=== PATIENT | male | born 1985 | race Caucasian/White ===

== ENCOUNTER 2018-08-20 14:46 | Emergency (ER) | payer OTHER ==
--- NOTE | 2018-08-20 15:22 | ED ---
General Adult HPI - General Chief complaint: Psychiatric Symptoms Stated complaint: Mental Health Time Seen by Provider: 08/20/18 14:55 Source: police, RN notes reviewed Mode of arrival: ambulatory Limitations: no limitations - History of Present Illness Initial comments: This is a 32-year-old male who presents emergency Department with police after having made statements about wanting to kill himself and threatening his parents. Father had petition times and called the police. According to the police the friend had received a phone call from the patient and the patient had indicated that he wanted to kill himself and so the friend called the police. Father confirmed those statements with police. Father also told the police that the patient was threatening them. Patient told me that myself and the police officers in the room were all psychopaths and he also told the police specialist earlier that he wanted to kill [place] specific. Patient also stated he thought the pharmaceutical [employer] wanted to use as a guinea pig further medications. Patient denies any physical complaints. Patient did have an abrasion to his left hand and forehead after he ran away from the police and phone the sidewalk. Patient denies any other symptoms patient denies any pain patient denies any recent fever chills. - Related Data Home Medications Medication Instructions Recorded Confirmed No Known Home Medications 08/20/18 08/20/18 Allergies Allergy/AdvReac Type Severity Reaction Status Date / Time No Known Allergies Allergy Unverified 08/20/18 15:42 Review of Systems ROS Statement: Those systems with pertinent positive or pertinent negative responses have been documented in the HPI. ROS Other: All systems not noted in ROS Statement are negative. Past Medical History Past Medical History: Unable to Obtain History of Any Multi-Drug Resistant Organisms: None Reported Past Surgical History: Unable to Obtain Past Psychological History: Unable to Obtain Smoking Status: Never smoker Past Alcohol Use History: Occasional Past Drug Use History: None Reported General Exam - General Exam Comments Initial Comments: GENERAL: Patient is well-developed and well-nourished. Patient is nontoxic and well- hydrated and is in no acute distress. ENT: Neck is soft and supple. No significant lymphadenopathy is noted. Oropharynx is clear. Moist mucous membranes. Neck has full range of motion without eliciting any pain. EYES: The sclera were anicteric and conjunctiva were pink and moist. Extraocular movements were intact and pupils were equal round and reactive to light. Eyelids were unremarkable. PULMONARY: Unlabored respirations. Good breath sounds bilaterally. No audible rales rhonchi or wheezing was noted. CARDIOVASCULAR: There is a regular rate and rhythm without any murmurs gallops or rubs. ABDOMEN: Soft and nontender with normal bowel sounds. No palpable organomegaly was noted. There is no palpable pulsatile mass. SKIN: Superficial abrasion to the palmar surface of the left hand and the anterior aspect of the forehead. NEUROLOGIC: Patient is alert and oriented x3. Cranial nerves II through XII are grossly intact. Motor and sensory are also intact. Normal speech, volume and content. Symmetrical smile. MUSCULOSKELETAL: Normal extremities with adequate strength and full range of motion. LYMPHATICS: No significant lymphadenopathy is noted PSYCHIATRIC: Patient made suicidal statements and homicidal statements to the police and father and friends. Patient admits to making these statements. Patient also makes statements about the pharmaceutical company try to use it as a guinea pig. Patient also made a statement that we all this Brittni LOC him up. Patient seems very angry and agitated. Limitations: no limitations Course Vital Signs 08/20/18 14:55 Temperature 99.8 F H Pulse Rate 125 H Respiratory 22 Rate Blood Pressure 170/96 O2 Sat by Pulse 97 Oximetry Medical Decision Making - Medical Decision Making I filled out a clinical certification form. Patient will be transferred to a psych facility. Disposition Clinical Impression: Acute psychosis Disposition: TRANSFER TO PSYCH HOSP/UNIT Referrals: None,Stated [Primary Care Provider] - 1-2 days Time of Disposition: 16:56
[2018-08-20 17:34] LABS: Appearance,Urine Clear (Clear); Bilirubin,Urine Negative (Negative); Blood,Urine Negative (Negative); Color,Urine Light Yellow; Glucose,Urine (UA) Negative (Negative); Ketones,Urine Negative (Negative); Leukocyte Esterase,Urine Negative (Negative); Nitrite,Urine Negative (Negative); PH, Urine 6.5 (5.0-8.0); Protein,Urine Trace (Negative); Specific Gravity,Urine 1.006 (1.001-1.035); Urobilinogen,Urine <2.0 mg/dL (<2.0)
[2018-08-20 17:44] LABS: Amphetamine Screen,Urine Not Detected (NotDetected); Barbiturate Screen,Urine Not Detected (NotDetected); Benzodiazepines Screen,Urine Not Detected (NotDetected); Cocaine Screen,Urine Not Detected (NotDetected); Methadone Screen, Urine Not Detected (NotDetected); Opiate Screen,Urine Not Detected (NotDetected); Oxycodone Screen, Urine Not Detected (NotDetected); Phencyclidine Screen,Urine Not Detected (NotDetected); Tricyclic Antidepressant,Urine Not Detected (NotDetected); Urn Cannabinoid Scrn Detected (NotDetected)
[2018-08-20 18:18] LABS: Basophils % (A) 0 %; Eosinophils # (A) 0.1 k/uL (0-0.7); Eosinophils % (A) 1 %; HCT 43.8 % (39.0-53.0); HGB 15.2 gm/dL (13.0-17.5); Lymphocytes % (A) 8 %; MCHC 34.8 g/dL (31.0-37.0); MCV 89.3 fL (80.0-100.0); Mean Platelet Volume 7.2; Monocytes # (A) 0.6 k/uL (0-1.0); Monocytes % (A) 5 %; Neutrophils # (A) 11.2 k/uL (1.3-7.7); Neutrophils % (A) 86 %; Platelet Count 194 k/uL (150-450); RDW 12.9 % (11.5-15.5); WBC 12.9 k/uL (3.8-10.6)
[2018-08-20 18:31] LABS: ALT 16 U/L (21-72); AST 21 U/L (17-59); Albumin 4.8 g/dL (3.5-5.0); Alkaline Phosphatase 43 U/L (38-126); Anion Gap 10 mmol/L; Blood Urea Nitrogen 10 mg/dL (9-20); Calcium 9.7 mg/dL (8.4-10.2); Carbon Dioxide 23 mmol/L (22-30); Chloride 108 mmol/L (98-107); Glucose 122 mg/dL (74-99); Potassium 3.7 mmol/L (3.5-5.1); Sodium 141 mmol/L (137-145); Total Bilirubin 0.6 mg/dL (0.2-1.3); Total Protein 7.5 g/dL (6.3-8.2)
[2018-08-20 22:14] VITALS: BP 131/76; PULSE 76; RESP 16; TEMP 98.2
== END 2018-08-21 01:05 ==
LOC: EC 14:46
DX: F23 Brief psychotic disorder (principal); S60.512A Abrasion of left hand, initial encounter; S00.81XA Abrasion of other part of head, initial encounter; X58.XXXA Exposure to other specified factors, initial encounter
CPT/HCPCS: 36415; 80053; 80306; 81003; 85025; 99285

== ENCOUNTER 2018-10-22 09:39 | Emergency (ER) | payer OTHER ==
[2018-10-22 09:49] VITALS: PULSE 110; RESP 18
--- NOTE | 2018-10-22 10:16 | ED ---
General Adult HPI - General Chief complaint: Psychiatric Symptoms Stated complaint: suicidal Time Seen by Provider: 10/22/18 09:48 Source: patient, RN notes reviewed Mode of arrival: EMS Limitations: no limitations - History of Present Illness Initial comments: Patient 32-year-old male presented to the emergency room today by police needing psychiatric evaluation. Patient does admit that he got into an argument with his father this morning. Patient states that he was upset because it was father yesterday that he did not want talk to him. He states that he try to talk to him this morning which caused him to get into her argument. He states his mother called the police. Patient states he voluntarily came here to be evaluated. He does see a therapist every other week which he has been going to. States she's been taking his medication of Abilify. He denies any suicidal or homicidal thoughts or plans. Denies any other complaints. Patient denies any recent fever, chills, shortness of breath, chest pain, back pain, abdominal pain, nausea or vomiting, numbness or tingling , headaches or visual changes, or any other complaints. - Related Data Home Medications Medication Instructions Recorded Confirmed ARIPiprazole [Abilify] 20 mg PO DAILY 10/22/18 10/22/18 Acetaminophen Tab [Tylenol Tab] 500 mg PO Q6HR PRN 10/22/18 10/22/18 Allergies Allergy/AdvReac Type Severity Reaction Status Date / Time No Known Allergies Allergy Verified 10/22/18 10:03 Review of Systems ROS Statement: Those systems with pertinent positive or pertinent negative responses have been documented in the HPI. ROS Other: All systems not noted in ROS Statement are negative. Past Medical History Past Medical History: Unable to Obtain History of Any Multi-Drug Resistant Organisms: None Reported Past Surgical History: Unable to Obtain Past Psychological History: Depression Smoking Status: Former smoker Past Alcohol Use History: None Reported Past Drug Use History: None Reported General Exam - General Exam Comments Initial Comments: General: The patient is awake and alert, in no distress, and does not appear acutely ill. Eye: There is normal conjunctiva bilaterally. No signs of icterus. Ears, nose, mouth and throat: There are moist mucous membranes and no oral lesions. Neck: The neck is supple, there is no tenderness or JVD. Cardiovascular: There is a regular rate and rhythm. No murmur, rub or gallop is appreciated. Respiratory: Lungs are clear to auscultation, respirations are non-labored, breath sounds are equal. No wheezes, stridor, rales, or rhonchi. Musculoskeletal: Normal ROM, no tenderness. Neurological: A&O x 3. CN II-XII intact, There are no obvious motor or sensory deficits. Coordination appears grossly intact. Speech is normal. Skin: Skin is warm and dry and no rashes or lesions are noted. Psychiatric: Cooperative. Limitations: no limitations Course Vital Signs 10/22/18 10/22/18 09:43 13:21 Temperature 98.7 F 97.3 F L Pulse Rate 110 H 110 H Respiratory 18 18 Rate Blood Pressure 114/76 110/67 O2 Sat by Pulse 98 98 Oximetry Medical Decision Making - Medical Decision Making Patient has been seen here in emergency room by mental health in the recommendation that patient can follow up outpatient. Patient denies any suicidal homicidal thoughts or plans. Patient will be discharged to follow-up with [facility]. Crisis unit is here to take patient. Disposition Clinical Impression: Aggression Disposition: HOME SELF-CARE Condition: Good Additional Instructions: Please follow-up with Valsalva as discussed here in emergency room. Return to emergency room if any symptoms increase or worsen or for any other concerns. Is patient prescribed a controlled substance at d/c from ED?: No Referrals: None,Stated [Primary Care Provider] - 1-2 days Time of Disposition: 13:23
[2018-10-22 13:22] VITALS: BP 110/67; TEMP 97.3
== END 2018-10-22 13:37 | disposition home or self-care (01) ==
LOC: EC 09:39
DX: R45.6 Violent behavior (principal); F32.9 Major depressive disorder, single episode, unspecified; Z79.899 Other long term (current) drug therapy; Z87.891 Personal history of nicotine dependence
CPT/HCPCS: 99284

== ENCOUNTER 2021-04-30 11:54 | Inpatient (IN) | payer MEDICAID, OTHER ==
[2021-04-30 12:41] LABS: Glucose,Whole Blood 117 mg/dL (75-99)
--- NOTE | 2021-04-30 13:13 | ED ---
General Adult HPI - General Chief complaint: Psychiatric Symptoms Stated complaint: Pickup order, EPS Time Seen by Provider: 04/30/21 12:00 Source: patient, police, RN notes reviewed, old records reviewed Mode of arrival: ambulatory Limitations: no limitations - History of Present Illness Initial comments: This is a 35-year-old male who presents emergency Department under a petition court order. Patient seems to be obsessed with food cleanliness and thinks his father is not keeping the kitchen cleaning off is always getting food poisoning. Patient states he is not suicidal and he disagrees ever said that. Patient states him and his father to argue quite a bit lately. Patient states he has not recently are within a was neighbors though the petition states he has. Patient denies any physical complaints today. Patient denies any suicidal ideations or homicidal ideations. Patient denies any drug use. Patient states he is supposed be on Abilify but does not take it. Patient does not believe he needs to be here. - Related Data Home Medications Medication Instructions Recorded Confirmed No Known Home Medications 04/30/21 04/30/21 Allergies Allergy/AdvReac Type Severity Reaction Status Date / Time dust Allergy Dyspnea Uncoded 04/30/21 13:44 Review of Systems ROS Statement: Those systems with pertinent positive or pertinent negative responses have been documented in the HPI. ROS Other: All systems not noted in ROS Statement are negative. Past Medical History Past Medical History: No Reported History History of Any Multi-Drug Resistant Organisms: None Reported Past Surgical History: No Surgical Hx Reported Past Psychological History: Depression Smoking Status: Never smoker Past Alcohol Use History: None Reported Past Drug Use History: None Reported General Exam - General Exam Comments Initial Comments: GENERAL: Patient is well-developed and well-nourished. Patient is nontoxic and well- hydrated and is in no acute distress. ENT: Neck is soft and supple. No significant lymphadenopathy is noted. Oropharynx is clear. Moist mucous membranes. Neck has full range of motion without eliciting any pain. EYES: The sclera were anicteric and conjunctiva were pink and moist. Extraocular movements were intact and pupils were equal round and reactive to light. Eyelids were unremarkable. PULMONARY: Unlabored respirations. Good breath sounds bilaterally. No audible rales rhonchi or wheezing was noted. CARDIOVASCULAR: There is a regular rate and rhythm without any murmurs gallops or rubs. ABDOMEN: Soft and nontender with normal bowel sounds. SKIN: Skin is clear with no lesions or rashes and otherwise unremarkable. NEUROLOGIC: Patient is alert and oriented x3. Cranial nerves II through XII are grossly intact. Motor and sensory are also intact. Normal speech, volume and content. Symmetrical smile. MUSCULOSKELETAL: Normal extremities with adequate strength and full range of motion. LYMPHATICS: No significant lymphadenopathy is noted PSYCHIATRIC: Patient denies any suicidal homicidal ideations. Patient does seem to be somewhat paranoid about food preparation and thinks that he eats. Patient thinks his low wait secondary to probably food poisoning from his father's unsanitary cooking. Limitations: no limitations Course Vital Signs 04/30/21 04/30/21 12:01 12:19 Temperature 98.1 F Pulse Rate 89 Respiratory 20 20 Rate Blood Pressure 139/82 O2 Sat by Pulse 100 Oximetry Medical Decision Making - Medical Decision Making EPS evaluated the patient and determined the patient needed to be admitted the patient signed himself in. - Lab Data Lab Results 04/30/21 04/30/21 Range/Units 12:40 14:15 POC Glucose (mg/dL) 117 H (75-99) mg/dL POC Glu Ground Crewman ID Daniela Sierra Urine Opiates Screen Not Detected (NotDetected) Ur Oxycodone Screen Not Detected (NotDetected) Urine Methadone Screen Not Detected (NotDetected) Ur Propoxyphene Screen Not Detected (NotDetected) Ur Barbiturates Screen Not Detected (NotDetected) U Tricyclic Antidepress Not Detected (NotDetected) Ur Phencyclidine Scrn Not Detected (NotDetected) Ur Amphetamines Screen Not Detected (NotDetected) U Methamphetamines Scrn Not Detected (NotDetected) U Benzodiazepines Scrn Not Detected (NotDetected) Urine Cocaine Screen Not Detected (NotDetected) U Marijuana (THC) Screen Detected H (NotDetected) Disposition Clinical Impression: Psychosis Disposition: ADMITTED IP TO THIS HOSP Referrals: None,Stated [Primary Care Provider] - 1-2 days Time of Disposition: 20:32
[2021-04-30 14:46] LABS: Amphetamine Screen,Urine Not Detected (NotDetected); Barbiturate Screen,Urine Not Detected (NotDetected); Benzodiazepines Screen,Urine Not Detected (NotDetected); Cocaine Screen,Urine Not Detected (NotDetected); Methadone Screen, Urine Not Detected (NotDetected); Opiate Screen,Urine Not Detected (NotDetected); Oxycodone Screen, Urine Not Detected (NotDetected); Phencyclidine Screen,Urine Not Detected (NotDetected); Tricyclic Antidepressant,Urine Not Detected (NotDetected); Urn Cannabinoid Scrn Detected (NotDetected)
[2021-04-30] MEDS ORDERED: MAG HYDROX/AL HYDROX/SIMETH 30 ML CUP PO PRN (21:07)
[2021-04-30] MEDS ORDERED: MAGNESIUM HYDROXIDE 2,400 MG/10 ML CUP PO PRN (21:07)
[2021-04-30] MEDS ORDERED: ACETAMINOPHEN TAB 325 MG TAB PO PRN (21:07)
[2021-04-30] MEDS ORDERED: LORazepam 2 MG/ML INJ IM PRN (21:10)
[2021-04-30] MEDS ORDERED: HALOPERIDOL LACTATE 5 MG/ML 1 ML VIAL IM PRN (21:19)
[2021-05-01 09:25] LABS: ALT 13 U/L (4-49); AST 20 U/L (17-59); African American GFR (CKD) >90 (>60 ml/min/1.73 sqM); Albumin 4.8 g/dL (3.5-5.0); Alkaline Phosphatase 37 U/L (38-126); Anion Gap 7 mmol/L; Blood Urea Nitrogen 12 mg/dL (9-20); Calcium 9.8 mg/dL (8.4-10.2); Carbon Dioxide 30 mmol/L (22-30); Chloride 105 mmol/L (98-107); Glucose 121 mg/dL (74-99); Non-African American GFR(CKD) >90 (>60 ml/min/1.73 sqM); Potassium 4.3 mmol/L (3.5-5.1); Sodium 142 mmol/L (137-145); Total Bilirubin 1.2 mg/dL (0.2-1.3)
[2021-05-01 09:42] LABS: Basophils # (A) 0.1 k/uL (0-0.2); Basophils % (A) 1 %; Eosinophils # (A) 0.1 k/uL (0-0.7); Eosinophils % (A) 3 %; HCT 46.5 % (39.0-53.0); Lymphocytes # (A) 1.2 k/uL (1.0-4.8); Lymphocytes % (A) 27 %; MCH 31.4 pg (25.0-35.0); MCHC 34.4 g/dL (31.0-37.0); MCV 91.2 fL (80.0-100.0); Mean Platelet Volume 8.9; Monocytes # (A) 0.3 k/uL (0-1.0); Monocytes % (A) 6 %; Neutrophils # (A) 2.6 k/uL (1.3-7.7); Neutrophils % (A) 60 %; Platelet Count 187 k/uL (150-450); RDW 12.9 % (11.5-15.5); WBC 4.3 k/uL (3.8-10.6)
[2021-05-01] MEDS: haloperidoL 5 MG TAB PO SCH ×2 (11:18→21:07)
[2021-05-01 13:13] VITALS: BMI 18.5
[2021-05-01] MEDS: LORazepam 1 MG TAB PO PRN (16:14)
[2021-05-01 17:15] LABS: Cholesterol 140 mg/dL (0-200)
[2021-05-01 17:56] LABS: Hemoglobin A1C 4.8 % (4.0-6.0)
--- NOTE | 2021-05-01 19:37 | HP ---
HISTORY AND PHYSICAL DATE OF SERVICE: 05/01/2021 IDENTIFYING DATA: The patient is a 35-year-old male. He resides with his father. He was referred on petition for hospitalization. CHIEF COMPLAINT: The patient was making statements of wanting to kill himself. He had disorganized and agitated behavior. HISTORY OF PRESENTING ILLNESS: The patient provided some information about his current circumstances. I also talked to the patient's father who was the petitioner. The patient had a prior psychiatric hospitalization about 2 years ago at [facility]. The apparent diagnosis was schizophrenia. It sounds as if he may have had similar issues. He was put on Abilify. He was on a court order for 6 months. The patient stated that he took his medicine on a daily basis only because he was court ordered to do so. When the court order went off he stopped medications altogether. He has been living with his father for a number of years. The patient described a lot of conflicts between him and his father going on for quite a long time. He will talk about his father having dementia and also managing food so that he and his father at different times have gotten food poisoning. The patient describes that he does get some panic symptoms and acknowledges that he has social anxiety where it is difficult for him to get out into social settings. He also describes trauma going back to 10 years old when he was living with his mother and stepfather. There would be a lot of conflicts between them. He said he still has flashbacks to that. He notes that he has struggled in his life with maintaining work. 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 He said he would have trouble, he could not stay with jobs for any number of reasons. He notes currently that he has been sleeping "okay." He describes some tinnitus that makes it hard for him to fall asleep. He denies hallucinations, delusions, or paranoia. When I reviewed the petition process and issues with his father he talked at length about how his father is documenting things that are not reality. He said that he does get into arguments with his father because his father has difficulties on a day-to-day basis. He says they get into arguments over food issues. He also has been distressed over some of the action of neighbors. From father's standpoint, he stated that the patient has had significant problems with getting into an agitated state. He yells at his father pretty much on a daily basis. He will accuse his father of various things. He says that the patient will get into an agitated stated state to the point where mother is scared to talk to him. When they are in the home sometimes the patient will block doorways to keep father from going into one room or another. He has had episodes of yelling at the neighbors. He got agitated at one point where he slammed the bedroom door and broke it. He has made threats in the past towards others. According to the petition, the patient made the statement "I want to kill myself." He was not taking medications. Neighbors have seen him outside the house in the back where he will seem to peak around the house as if he is hiding and looking for others. Father notes that it is not unusual for the patient to stop talking for months on end. At times he will complain about the food being poisoned and has thrown fresh food out. When I was on the phone with father and the patient in the room, the patient tended to digress and talked about things such as the father having to consolidate his loans because he has $22,000 in debt on credit card. He made other similar statements. He tended to refute almost everything that the father stated about concerns for Bradford's functioning. The father indicates that when the patient was on Abilify he did considerably better. Father notes that he believes the patient drinks alcohol frequently. Father has found half gallon bottles of alcohol in the patient's room. Father notes that the patient often will lock himself in his room and simply not come out to the rest of the house. He is not currently on any psychotropic medications. He is admitted for further evaluation. SUBSTANCE USE HISTORY: As above. PAST MEDICAL HISTORY: Patient reports no current or chronic general health complaints. FAMILY AND SOCIAL HISTORY: The patient has been living with his father for about 4 years. He has a half brother. He was at [employer] as a freshman when he was hospitalized in [place]. He dropped out of [place] though did apparently do some class work at [employer]. His parents are . MENTAL STATUS EXAM: Patient was restless. He gave fairly good eye contact. He answered questions with brief responses. Typically he would digress and then go off and ramble about issues of his father or others. His thoughts were clear, coherent and goal-directed. His affect was anxious and intense. His mood dysphoric. He seemed fairly distressed. It was difficult to assess for thought disorder though there is some suggestion he may have some paranoid thinking, possible obsessive-compulsive thinking and severe social anxiety to the point of thought disorder. The patient voiced no thoughts of harm. On cognitive exam he was oriented and alert. Recent and remote memory were intact. Attention and concentration fair. Insight and judgment questionable. PHYSICAL EXAMINATION: As per medical consultation. ASSESSMENT: This 35-year-old male is diagnosed with psychosis. He apparently has had a diagnosis of schizophrenia given the divergence of information that we have, namely just from the patient and just from the father without any supporting medical records, the diagnosis is unclear. The information that father provided including what was written on the petition is reasonably concerning. The patient was willing to start medication at least on a trial basis. Strengths include that the patient's father does seem to be supportive and has been able to have the patient live with him and provide for the patient's welfare. Weakness includes long-term issues of the patient having minimal functioning in social and community realms. DIAGNOSES: 1. Psychosis. 2. Rule out schizophrenia. 3. Possible alcohol abuse, rule out dependence. 4. Posttraumatic stress disorder. RECOMMENDATIONS: Patient is admitted for comprehensive medical psychiatric and psychosocial evaluation. We will engage the patient in individual and group therapeutic activities. I had an extensive discussion with the patient regarding treatment options. The patient was willing to start medications, though did not want to be on Abilify as he said he did not tolerate that well. I will start the patient on Haldol 10 mg twice a day for apparent psychotic symptoms. The trial of Haldol may help in clarifying some of the diagnostic issues. We will focus on stabilization and discharge planning. MMSAMANTHAL / BISHOPN: [id number] / [facility]#: [id number]
[2021-05-02] MEDS: haloperidoL 5 MG TAB PO SCH ×2 (08:10→21:29)
[2021-05-02] MEDS: BENZTROPINE MESYLATE 1 MG TAB PO SCH ×2 (12:11→21:29)
--- NOTE | 2021-05-02 16:22 | PN ---
PROGRESS NOTE DATE OF SERVICE: 05/02/2021 CHIEF COMPLAINT: The patient was making statements of wanting to kill himself. He had disorganized and agitated behavior. INTERVAL HISTORY: Patient has been doing fair. He had a quiet day yesterday. He comes out on the unit. He wanders about. He tends to keep to himself and does not seem to pay too much attention to things going on around him. He attended 2 groups yesterday. Generally, he had a quiet manner but was appropriate. He slept fairly well last night. Today he has been up. He says he has some back muscle stiffness. He continues to be focused on a lot of problems that he perceives his father is having. He talked at length about some sewage backup they have had at the house. He mentioned some other issues. He says that his father does not handle food in the refrigerator in a very cleanly way and that puts him at risk for food poisoning. He does not believe that even if he bought his own food that he could be more protected. We talked at length about him getting out and having some kind of community activities. 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 He had trouble explaining that from the standpoint that he feels that generally he is a healthy person. He does say that he feels in certain ways his health has deteriorated but he cannot really identify what he means by that. He has been appropriate in his interaction with staff and peers though he does not socialize too much. He has not attended groups today. He appears to tolerate his psychotropic medication. MENTAL STATUS: Patient sat with some restlessness. He gave fairly good eye contact. He answered questions with brief responses. He tended to digress and would talk at length about difficult situations that his father puts him in. His affect is blunted. His mood is depressed. He seemed moderately distressed. He appears to voice paranoid thinking. He voiced no thoughts of harm. He was oriented to circumstances and surroundings. ASSESSMENT: I will continue the current diagnosis and treatment plan. I will continue the patient on Haldol 10 mg twice a day. Given the muscle complaints he has with I will try Cogentin 1 mg twice a day as he may be having some EPS symptoms from the Haldol. I reviewed medication issues with the patient including potential side effects and the indication for Cogentin. I reviewed the petition process. The patient seemed to accept that his plan would be to continue with regular mental health treatment through [facility] once he is discharged. He did not object to medications either. We will focus on stabilization and discharge planning. KILEY / LO: [id number] /
[2021-05-02] MEDS: LORazepam 1 MG TAB PO PRN (21:31)
--- NOTE | 2021-05-03 04:29 | P.MDCNMH ---
History of Present Illness H&P Date: 05/02/21 Chief Complaint: Medical evaluation 35-year-old male Patient is upset because he had to be in the mental health unit he was petitioned for psych evaluation he denies any suicidal or homicidal ideation. Per ER note is obsessed with with cleanliness and he gets into arguments with his dad told the time. He is not sure why he is here he currently denies any medical concerns or physical complaints at this point seems like he is noncompliant with his Abilify which is his only prescription medication He denies any smoking, illicit drugs, alcohol Review of Systems Pertinent positives as noted in HPI. All other systems were reviewed and are negative Past Medical History Past Medical History: No Reported History History of Any Multi-Drug Resistant Organisms: None Reported Past Surgical History: No Surgical Hx Reported Past Anesthesia/Blood Transfusion Reactions: No Reported Reaction Past Psychological History: Depression Smoking Status: Never smoker Past Alcohol Use History: None Reported Past Drug Use History: Marijuana Additional Drug Use History / Comment(s): Pt denies substance use but urine is positive for marijuana - Past Family History Family Family Medical History: No Reported History Medications and Allergies Home Medications Medication Instructions Recorded Confirmed Type No Known Home Medications 04/30/21 04/30/21 History Allergies Allergy/AdvReac Type Severity Reaction Status Date / Time dust Allergy Dyspnea Uncoded 04/30/21 13:44 Physical Exam Vitals: Vital Signs Temp Pulse Resp BP 05/02/21 06:59 96.1 F L 78 18 110/52 Constitutional: No acute distress, conversant, pleasant Eyes: Anicteric sclerae, moist conjunctiva, Pupils equal round reactive to light ENMT: NC/AT Oropharynx clear, no erythema, or exudates Neck: Supple, FROM, no masses, or JVD No carotid bruits No thyromegaly Lungs: Clear to auscultation Clear to percussion Normal respiratory effort, no accessory muscle use Cardiovascular: Heart regular in rate and rhythm, No murmurs, gallops, or rubs No peripheral edema Abdominal: Soft Nontender, no guarding, rebound or rigidity Abdomen moving with respiration Normoactive bowel sounds No hepatomegaly, No splenomegaly No palpable mass No abdominal wall hernia noted Skin: Normal temperature, tone, texture, turgor No induration No subcutaneous nodules No rash, lesions No ulcers Extremities: No digital cyanosis No clubbing Pedal pulses intact and symmetrical Radial pulses intact and symmetrical No calf tenderness Psychiatric: Alert and oriented to person, place and time Appropriate affect fair judgement Neuro Muscles Strength 5/5 in all 4 extremities Sensation to light touch grossly present throughout Cranial nerves II-XII grossly intact No focal sensory deficits Lymphatics: no palpable cervical or supraclavicular , or inguinal lymph nodes Cranial Nerve Examination - Cranial Nerves Cranial Nerve II- Optic: Intact Cranial Nerve III- Oculomotor: Intact Cranial Nerve IV- Trochlear: Intact Cranial Nerve V- Trigeminal: Intact Cranial Nerve - Abducens: Intact Cranial Nerve VII- Facial: Intact Cranial Nerve VIII- Auditory: Intact Cranial Nerve IX- Glossopharyngeal: Intact Cranial Nerve X- Vagus: Intact Cranial Nerve XI- Accessory: Intact Cranial Nerve XII- Hypoglossal: Intact Results CBC & Chem 7: 05/01/21 08:46 05/01/21 08:46 Assessment and Plan Assessment: Psych evaluation for bizarre behavior Management per psych No medical concerns at this time Labs reviewed Thank you for allowing us to participate in the care of this patient. We will follow peripherally. Do not hesitate to contact us with questions. Someone can be reached from the [facility] hospitalist group at all hours of the day at [phone].
[2021-05-03] MEDS: haloperidoL 5 MG TAB PO SCH ×2 (08:41→21:01)
[2021-05-03] MEDS: BENZTROPINE MESYLATE 1 MG TAB PO SCH ×2 (08:41→21:01)
--- NOTE | 2021-05-03 11:18 | P.PN ---
Progress Note - Text Progress Note Date: 05/03/21 Clinical Problems: Schizophrenia, poor compliance with mental health treatment, cannabis use disorder, rule out alcohol use disorder Interim history: I reviewed the medical record and interviewed the patient. He is a 35-year-old single male who has a history of a schizophrenia. He presented to the hospital involuntarily and his father completed the Petition for hospitalization describing paranoid and delusional beliefs where thought [employer] was being poisoned "unknown people." However, he agreed to a voluntary hospitalization. During our interview he perseverated about his father whom he blames for his emotional and "mental" problems. Apparently the proximal stress for this hospitalization was a loss of control when he lost access to the Internet. He is also somatically preoccupied and repeatedly complained of fatigue, back pain and neck pain. He is unemployed and has no income. He has no friends or relationship with family other than his father. He spends his time watching television and playing video games. He seldom attends therapeutic groups and activities. He slept 7 hours last night. He's been compliant with his prescribed psychotropic medications and denied side effects to the current dose of Haldol. Mental status exam: He presented as a thin and almost emaciated appearing young male who was pleasant on approach. He made eye contact and attended to interview. He had no prominent physical abnormalities. He had a flat facial expression. He is alert and oriented to person, place and time. He had psychomotor retardation but no abnormal involuntary movements. His speech was spontaneous with decreased rate and rhythm. His affect was blunted on expressive. He denied current suicidal ideation or wishes. He denied homicidal ideation particularly homicidal ideation towards his father. He feels hopeless and helpless regarding his living situation and his dependence on his father. He ruminated about his father, his father's disabilities, his father's medical problems in his relationship with his father. He did not express clear ideas reference. He did not talk about chronic paranoid ideation was guarded throughout the interview. His thinking was very concrete but his associations were goal directed. He denied hallucinations did not appear to be responding to internal stimuli. Assessment: He has chronically mentally ill but improve from admission. Plan: Continue with inpatient admission. Safety precautions. Continue Cogentin 1 mg twice a day and Haldol 10 mg twice a day. Continue Haldol 4 mg by mouth or IM 3 times a day when necessary for agitation acute psychosis as well as Ativan 1 mg 3 times a day when necessary IM anxiety or agitation. Consider transitioning to Haldol decanoate prior to discharge. Encourage participation in therapeutic groups and activities. Evaluate clinical status response to treatment daily basis.
[2021-05-04] MEDS: LORazepam 1 MG TAB PO PRN ×2 (03:04→21:31)
[2021-05-04] MEDS: haloperidoL 5 MG TAB PO SCH ×2 (09:05→21:02)
[2021-05-04] MEDS: BENZTROPINE MESYLATE 1 MG TAB PO SCH ×2 (09:05→21:02)
--- NOTE | 2021-05-04 15:06 | P.PN ---
Progress Note - Text Progress Note Date: 05/04/21 Clinical Problems: Schizophrenia, poor compliance with mental health treatment, cannabis use disorder, rule out alcohol use disorder Interim history: I reviewed the medical record and interviewed the patient. He denied problems or concerns other than discharge. He showed no episodes of behavioral dyscontrol is not received when necessary medications for agitation, uncontrolled anger or acute psychosis. He seldom attends therapeutic groups and activities. He slept 7 hours last night. He's been compliant with his prescribed psychotropic medications and denied side effects to the current dose of Haldol. Mental status exam: He presented as a thin and almost emaciated appearing young male who was wearing his face mask on his forehead. He made eye contact and attended to interview. He had no prominent physical abnormalities. He had a flat facial expression. He is alert and oriented to person, place and time. He had psychomotor retardation but no abnormal involuntary movements. His speech was spontaneous with normal rate and rhythm. His affect was blunted but expressive. He denied current suicidal ideation or wishes. He denied homicidal ideation particularly homicidal ideation towards his father. He feels hopeless and helpless regarding his living situation and his dependence on his father. He ruminated about his father, his father's disabilities, his father's medical problems in his relationship with his father. He did not express clear ideas reference. He did not talk about chronic paranoid ideation was guarded throughout the interview. His thinking was very concrete but his associations were goal directed. He denied hallucinations did not appear to be responding to internal stimuli. Assessment: He has chronically mentally ill but improved from admission. Plan: Continue with inpatient admission. Safety precautions. Continue Cogentin 1 mg twice a day and Haldol 10 mg twice a day. Continue Haldol 4 mg by mouth or IM 3 times a day when necessary for agitation acute psychosis as well as Ativan 1 mg 3 times a day when necessary IM anxiety or agitation. Consider transitioning to Haldol decanoate prior to discharge. Encourage participation in therapeutic groups and activities. Evaluate clinical status response to treatment daily basis.
[2021-05-05] MEDS: haloperidoL 5 MG TAB PO SCH ×2 (09:18→20:41)
[2021-05-05] MEDS: BENZTROPINE MESYLATE 1 MG TAB PO SCH ×2 (09:18→20:42)
--- NOTE | 2021-05-05 12:57 | P.PN ---
Progress Note - Text Progress Note Date: 05/05/21 Interval History: Patient was seen wandering the hallways and was directable and agreeable to juvencio scanlon with chief underwriter in the office. Patient appeared to be tall and thin and have a disheveled appearance. He rambled during the conversation and was fairly tangential and had loose associations at times. He was attempting to be cooperative and answered all questions. He claims that he is doing better as being in the hospital and spoke about being admitted to another psychiatric hospital where they put him on Abilify which she states that Cave him many side effects. He states that he is not having any paranoia today. He claims that he did not sleep well last night. He claims that he spoke with his father and claims that he wants to "get guardianship over him". He claims he wants to do this because his father is in debt. At this time patient denies any suicidal or homical ideations, intent or plan. Patient denies any auditory, visual hallucinations and denies any paranoia or delusions. Patient denies any side effects from the medications and has been compliant with meds. Mental Status Exam: General Appearance: Patient appears to be tall, thin, stated age is alert, directable, and attempts to be cooperative. Behavior: Patient is calmly seated without any agitated behavior. Speech: Patient's speech is fluent and nonpressured. Mood/Affect: Mood is improving mildly, affect is congruent and constricted. Suicidality/Homicidality: Patient denies having any suicidal or homicidal ideation intent or plan. Perceptions: Patient denies any visual hallucinations and denies any auditory hallucinations Though content/process: Rambles, tangential, loose associations at times. Memory and concentration: AOX3, grossly intact for the purposes of this session Judgment and insight: Chronically poor, Improving mildly Assessment Schizophrenia poor compliance with mental health treatment cannabis use disorder rule out alcohol use disorder nicotine dependence Plan: -Patient continues to meet criteria for inpatient psychiatric admission for symptom stabilization and safety. Patient has signed adult voluntary form and medication consent and was placed in patient's chart. -Medications: Added trazodone 50 mg daily at bedtime for insomnia/mood. Continue with Haldol by mouth 10 mg twice a day for psychosis, Cogentin 1 mg twice a day for EPS prophylaxis. -When necessary Ativan and Haldol for agitation/aggression. -NRT - nicotine patch -SW on board for discharge planning. Encouraged the patient to participate in milieu. We'll attempt to gather further collateral information from his father and tried to see if patient is approaching his baseline of functioning. Likely discharge in 2-3 days.
[2021-05-05] MEDS: traZODone HCL 50 MG TAB PO SCH (20:41)
[2021-05-06] MEDS: haloperidoL 5 MG TAB PO SCH ×2 (08:51→20:54)
[2021-05-06] MEDS: BENZTROPINE MESYLATE 1 MG TAB PO SCH ×2 (08:51→20:54)
--- NOTE | 2021-05-06 11:04 | P.PN ---
Progress Note - Text Progress Note Date: 05/06/21 Interval History: Patient was seen wandering the hallways waiting for the activity group and was directable and agreeable to speak with promotion writer in the office. Patient appeared to be tall and thin. Patient appeared to be more goal-directed in his thought process and was attempting to cooperate with the interview. He claims that he is feeling concerned about his dad because he has "cognition issues". He states that he is doing better overall in terms of his mood and also his thoughts. He states that he is not having any paranoia today. He claims that he did sleep approximately 6 hours last night however states that he was mainly because the bed was uncomfortable and once a continue on the same dose of trazodone. At this time patient denies any suicidal or homical ideations, intent or plan. Patient denies any auditory, visual hallucinations and denies any paranoia or delusions. Patient denies any side effects from the medications and has been compliant with meds. Mental Status Exam: General Appearance: Patient appears to be tall, thin, stated age is alert, directable, and attempts to be cooperative. Behavior: Patient is calmly seated without any agitated behavior. Speech: Patient's speech is fluent and nonpressured. Mood/Affect: Mood is improving mildly, affect is congruent and constricted. Suicidality/Homicidality: Patient denies having any suicidal or homicidal ideation intent or plan. Perceptions: Patient denies any visual hallucinations and denies any auditory hallucinations Though content/process: Rambles, tangential, improving mildly Memory and concentration: AOX3, grossly intact for the purposes of this session Judgment and insight: Chronically poor, improving mildly Assessment Schizophrenia poor compliance with mental health treatment cannabis use disorder rule out alcohol use disorder nicotine dependence Plan: -Patient continues to meet criteria for inpatient psychiatric admission for symptom stabilization and safety. Patient has signed adult voluntary form and medication consent and was placed in patient's chart. -Medications: trazodone 50 mg daily at bedtime for insomnia/mood. Continue with Haldol by mouth 10 mg twice a day for psychosis, Cogentin 1 mg twice a day for EPS prophylaxis. -When necessary Ativan and Haldol for agitation/aggression. -NRT - nicotine patch -SW on board for discharge planning. Encouraged the patient to participate in milieu. Likely discharge tomorrow back home.
[2021-05-06] MEDS: traZODone HCL 50 MG TAB PO SCH (21:08)
[2021-05-06 23:39] VITALS: BP 125/71; PULSE 74; RESP 16; TEMP 98
[2021-05-07] MEDS: haloperidoL 5 MG TAB PO SCH (08:55)
[2021-05-07] MEDS: BENZTROPINE MESYLATE 1 MG TAB PO SCH (08:55)
--- NOTE | 2021-05-07 09:59 | P.DS ---
Providers Date of admission: 04/30/21 21:00 Expected date of discharge: 05/07/21 Attending physician: Khoi Patino MD Consults: 04/30/21 21:07 Consult Physician Routine Consulting Provider: Misty Physician Consult Reason/Comments: medical management Do you want consulting provider notified?: Yes Primary care physician: Stated None - Discharge Diagnosis(es) (1) Schizophrenia Current Visit: Yes Status: Acute Priority: High (2) Poor compliance with medication Current Visit: Yes Status: Acute Priority: Medium (3) Cannabis use disorder, mild, abuse Current Visit: Yes Status: Acute Priority: Medium (4) Nicotine dependence Current Visit: Yes Status: Acute Priority: Low Hospital Course: Admission HPI: Admission note was completed by Dr. Sheldon "the patient is a 35-year-old male. He resides with his father. He was referred on petition for hospitalization. The patient was making statements of wanting to kill himself. He had disorganized and agitated behavior. Patient provided some information about his current circumstances. I also talked to the patient's father who was the petitioner. The patient had a prior psychiatric hospitalization about 2 years ago at [facility]. The apparent diagnosis was schizophrenia. It sounds as if he may have had similar issues. He was put on Abilify. He was on a court order for 6 months. The patient stated that he took his medicine on a daily basis only because he was court ordered to do so. When the court order went off he stopped medications altogether. He has been living with his father for a number of years. The patient described a lot of conflicts between him and his father going on for quite a long time. He will talk about his father having dementia and also managing food so that he and his father different times have gotten food poisoning. The patient describes that he does get some panic symptoms and acknowledges that he has social anxiety where it is difficult for him to get out into social settings. He also describes trauma going back to 10 years old when he was living with his mother and stepfather. There will be a lot of conflict between them. He said he still has flashbacks to that. He notes that he has struggled in his life with maintaining work. 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 He said he would have trouble, he could not stay with jobs for any number of reasons. He notes currently that he has been sleeping "okay". He describes some tendinitis that makes it hard for him to fall asleep. He denies hallucinations delusions or paranoia. When I reviewed the petition process and issues with his father he talked at length about how his father's documenting things that are not in reality. He said that he does get into arguments with his father because his father has difficulties on a day-to-day basis. He says they get into arguments over food issues. He also has been distressed over some of the actions of neighbors. From father's standpoint, he stated that the patient has had significant problems with getting into an agitated state. He yells at his father pretty much on a daily basis. He will accuse his father various things. He says that the patient will get into an agitated state to the point where mother is scared to talk to him. When they are in the home sometimes patient will blocked or ways to keep father from going into one room or another. He has had episodes of yelling at the neighbors. He got agitated at one point where he slammed the bedroom door and broke it. He has made threats in the past towards others. According to the petition, the patient made the statement "I want to kill myself". He was not taking medications. The neighbors have seen him outside the house in the back where he will seem to peak around the house as if he is hiding and looking for others. Father notes that it is not unusual for the patient to stop talking for months on end. At times he will complain about the food being poisoned and has thrown fresh food out. When I was on the phone with the father and the patient in the room the patient tended to digress and talk about things such as the father having to consolidate his lows because he has $22,000 in debt on credit cards. He made other similar statements. He tended to refute almost everything that the father stated about concerns for Bradford's functioning. The father indicates that when the patient was on Abilify he did considerably better. Father notes that he believes the patient drinks alcohol frequently. Father has found a half gallon bottles of alcohol in the patient's room. Father notes that the patient often will lock himself in his room and simply not come out of the rest of the house. He is not currently on any psychotropic medications. He is admitted for further evaluation." Hospital course: Upon admission to the unit patient was initially bizarre. Patient was however directable and agreeable to commence treatment and signed adult voluntary form. Patient got along well with other patients on the unit and followed unit protocol. Patient was compliant with the medications and denied any side effects throughout hospital course. Patient was started on Haldol and increased to a dose of 10 mg twice a day. Patient was also started on trazodone 50 mg daily at bedtime for insomnia/mood. He was also started on Cogentin 1 mg twice a day for EPS prophylaxis. Patient was offered to be transitioning on to Haldol D long-acting injection to ensure compliance however patient declined this. Patient spoke of his stressors and engaged in therapy both group and individual. Patient was also seen by medical team for history and physical exam. Throughout the course of the hospitalization patient gradually improved with regards to mood, psychosis, anxiety, sleep and became more future oriented with improved insight and judgment. On the day of discharge patient denied any suicidal or homicidal ideations intent or plan denied any auditory or visual hallucinations. Patient endorsed wanting to live for his future and his family. The patient denied any access to guns or weapons. Patient denied any paranoia and did not endorse any delusions. Patient does not have a significant history of substance abuse however was counseled on abstaining from all substances including alcohol and marijuana. Patient was also counseled on the medications and need for regular compliance and was encouraged to follow-up with their outpatient appointment for mental health and also for primary care. Prior to discharge a family meeting will be arranged by psychotherapist social worker to answer any questions and ensure safety upon discharge. Mental status exam: General Appearance: Patient appears to be tall, thin, stated age is alert, plea marylu, and cooperative. Patient is in no acute distress and has improved hygiene and grooming Behavior: Patient is calmly seated without any agitated behavior. Speech: Patient's speech is fluent and nonpressured. Mood/Affect: Patient reports their mood is "good", affect is congruent and euthymic. Suicidality/Homicidality: Patient denies having any suicidal or homicidal ideation intent or plan. Perceptions: Patient denies any auditory or visual hallucinations. Though content/process: There is no evidence of any delusional thought content and thought process is linear and goal-directed. Rambles at times. Logical. Memory and concentration: AOX3, grossly intact for the purposes of this session. Can spell "WORLD" backwards correctly. Judgment and insight: chronically poor, however has improved with guarded prognosis Impression: Schizophrenia Poor compliance with medications Cannabis use disorder Nicotine dependence Plan: -Continue with discharge today as patient has improved and stabilized psychiatrically and is not currently an imminent threat to himself and/or others. Patient will remain at chronically elevated risk for harm to self and/or others due to his mental illness and chronically poor insight. -Continue medications: Haldol 10 mg twice a day for psychosis, trazodone 50 mg daily at bedtime for insomnia/mood, Cogentin 1 mg twice a day for EPS prophylaxis. -Patient was counseled on the need for medication compliance and appropriate follow-up at mental health and also primary care for medical issues. Patient verbalized understanding and agreed. -Social work to arrange for and conduct family meeting to ensure safety upon discharge and answer any questions/concerns. Social work also to arrange for patients follow up appointments with [facility] for psychiatric care along with follow up with primary care provider. -Patient counseled on abstaining from recreational drugs and marijuana and alcohol. Was informed/educated on the adverse effects on their physical and m ental health. Patient verbally agreed and understood. -Patient was instructed to return to the hospital or seek immediate medical care if their psychiatric or medical symptoms do worsen or reoccur. Allergies Allergy/AdvReac Type Severity Reaction Status Date / Time dust Allergy Dyspnea Uncoded 04/30/21 13:44 Laboratory Results WBC 4.3 k/uL (3.8-10.6) 05/01/21 08:46 RBC 5.10 m/uL (4.30-5.90) 05/01/21 08:46 Hgb 16.0 gm/dL (13.0-17.5) 05/01/21 08:46 Hct 46.5 % (39.0-53.0) 05/01/21 08:46 MCV 91.2 fL (80.0-100.0) 05/01/21 08:46 MCH 31.4 pg (25.0-35.0) 05/01/21 08:46 MCHC 34.4 g/dL (31.0-37.0) 05/01/21 08:46 RDW 12.9 % (11.5-15.5) 05/01/21 08:46 Plt Count 187 k/uL (150-450) 05/01/21 08:46 MPV 8.9 05/01/21 08:46 Neutrophils % 60 % 05/01/21 08:46 Lymphocytes % 27 % 05/01/21 08:46 Monocytes % 6 % 05/01/21 08:46 Eosinophils % 3 % 05/01/21 08:46 Basophils % 1 % 05/01/21 08:46 Neutrophils # 2.6 k/uL (1.3-7.7) 05/01/21 08:46 Lymphocytes # 1.2 k/uL (1.0-4.8) 05/01/21 08:46 Monocytes # 0.3 k/uL (0-1.0) 05/01/21 08:46 Eosinophils # 0.1 k/uL (0-0.7) 05/01/21 08:46 Basophils # 0.1 k/uL (0-0.2) 05/01/21 08:46 Sodium 142 mmol/L (137-145) 05/01/21 08:46 Potassium 4.3 mmol/L (3.5-5.1) 05/01/21 08:46 Chloride 105 mmol/L (98-107) 05/01/21 08:46 Carbon Dioxide 30 mmol/L (22-30) 05/01/21 08:46 Anion Gap 7 mmol/L 05/01/21 08:46 BUN 12 mg/dL (9-20) 05/01/21 08:46 Creatinine 0.73 mg/dL (0.66-1.25) 05/01/21 08:46 Est GFR (CKD-EPI)AfAm >90 (>60 ml/min/1.73 sqM) 05/01/21 08:46 Est GFR (CKD-EPI)NonAf >90 (>60 ml/min/1.73 sqM) 05/01/21 08:46 Glucose 121 mg/dL (74-99) H 05/01/21 08:46 POC Glucose (mg/dL) 117 mg/dL (75-99) H 04/30/21 12:40 POC Glu Nurse Practitioner Physician Assistant ID Daniela Sierra 04/30/21 12:[address] Glu mg/dL 91 05/01/21 08:46 Hemoglobin A1c 4.8 % (4.0-6.0) 05/01/21 08:46 Calcium 9.8 mg/dL (8.4-10.2) 05/01/21 08:46 Total Bilirubin 1.2 mg/dL (0.2-1.3) 05/01/21 08:46 AST 20 U/L (17-59) 05/01/21 08:46 ALT 13 U/L (4-49) 05/01/21 08:46 Alkaline Phosphatase 37 U/L (38-126) L 05/01/21 08:46 Total Protein 7.0 g/dL (6.3-8.2) 05/01/21 08:46 Albumin 4.8 g/dL (3.5-5.0) 05/01/21 08:46 Triglycerides 65.0 mg/dL (0.0-149.0) 05/01/21 08:46 Cholesterol 140 mg/dL (0-200) 05/01/21 08:46 LDL Cholesterol, Calc 71.0 mg/dL (0.0-131.0) 05/01/21 08:46 VLDL Cholesterol, Calc 13.00 mg/dL (5.00-40.00) 05/01/21 08:46 HDL Cholesterol 56.0 mg/dL (40.0-60.0) 05/01/21 08:46 Cholesterol/HDL Ratio 2.50 05/01/21 08:46 TSH 1.340 mIU/L (0.465-4.680) 05/01/21 08:46 Urine Opiates Screen Not Detected (NotDetected) 04/30/21 14:15 Ur Oxycodone Screen Not Detected (NotDetected) 04/30/21 14:15 Urine Methadone Screen Not Detected (NotDetected) 04/30/21 14:15 Ur Propoxyphene Screen Not Detected (NotDetected) 04/30/21 14:15 Ur Barbiturates Screen Not Detected (NotDetected) 04/30/21 14:15 U Tricyclic Antidepress Not Detected (NotDetected) 04/30/21 14:15 Ur Phencyclidine Scrn Not Detected (NotDetected) 04/30/21 14:15 Ur Amphetamines Screen Not Detected (NotDetected) 04/30/21 14:15 U Methamphetamines Scrn Not Detected (NotDetected) 04/30/21 14:15 U Benzodiazepines Scrn Not Detected (NotDetected) 04/30/21 14:15 Urine Cocaine Screen Not Detected (NotDetected) 04/30/21 14:15 U Marijuana (THC) Screen Detected (NotDetected) H 04/30/21 14:15 Vital Signs Temp 98 F 05/06/21 23:38 Pulse 74 05/06/21 23:38 Resp 16 05/06/21 23:38 BP 125/71 05/06/21 23:38 Pulse Ox 100 04/30/21 12:01 Patient Condition at Discharge: Stable Plan - Discharge Summary Discharge Rx Participant: No New Discharge Prescriptions: New Benztropine Mesylate [Cogentin] 1 mg PO BID 30 Days tab traZODone HCL [Desyrel] 50 mg PO HS 30 Days tab haloperidoL [Haldol] 10 mg PO BID 30 Days tab Discharge Medication List Benztropine Mesylate [Cogentin] 1 mg PO BID 30 Days tab 05/07/21 [Rx] haloperidoL [Haldol] 10 mg PO BID 30 Days tab 05/07/21 [Rx] traZODone HCL [Desyrel] 50 mg PO HS 30 Days tab 05/07/21 [Rx] Follow up Appointment(s)/Referral(s): None,Stated [Primary Care Provider] - 1-2 days Activity/Diet/Wound Care/Special Instructions: Activity and diet as tolerated. Avoid the use of street drugs and alcohol. Take all medications as prescribed. When you are in need of refills on your medicati ons please contact your medical provider and/or outpatient psychiatrist to have this done. Please go to scheduled outpatient appointment for aftercare treatment. If symptoms return or become worse, call the crisis line at and/or go to the nearest emergency room for evaluation. Discharge Disposition: HOME SELF-CARE
== END 2021-05-07 12:38 | disposition home or self-care (01) | DRG 885 ==
LOC: EC 11:54 → 3MHU 21:00
PROVIDERS: ADMIT Psychiatry & Neurology Psychiatry; ATTEND Psychiatry & Neurology Psychiatry
DX: F20.9 Schizophrenia, unspecified (principal); R45.851 Suicidal ideations; Z91.14 Patient's other noncompliance with medication regimen; F12.10 Cannabis abuse, uncomplicated; F17.200 Nicotine dependence, unspecified, uncomplicated; F40.10 Social phobia, unspecified; F43.10 Post-traumatic stress disorder, unspecified; G47.00 Insomnia, unspecified; H93.19 Tinnitus, unspecified ear; M77.9 Enthesopathy, unspecified; Z56.0 Unemployment, unspecified; Z79.899 Other long term (current) drug therapy
CPT/HCPCS: 36415; 80053; 80061; 80306; 82075; 83036; 84443; 85025; 99285

== ENCOUNTER 2022-02-13 19:10 | Inpatient (IN) | payer MEDICAID, OTHER ==
--- NOTE | 2022-02-13 20:21 | ED ---
General Adult HPI - General Source: patient, police, RN notes reviewed, old records reviewed Mode of arrival: ambulatory Limitations: no limitations <Aftab Armenta - Last Filed: 02/13/22 20:17> <Aftab Fitch - Last Filed: 02/14/22 02:19> - General Chief complaint: Psychiatric Symptoms Stated complaint: table games dual rate supervisor order Time Seen by Provider: 02/13/22 19:20 - History of Present Illness Initial comments: This is a 36-year-old male who presents emergency Department under a petition court order according to documentation the patient is becoming more more violent having many yelling outburst calling the mobile crisis unit and according to mobile crisis unit he is having paranoid thoughts very disorganized thoughts as well and is having pressured speech jumping from topic to topic which I experience what was in the room as well. Patient denies any suicidal or homicidal ideations. Patient states that his uncle has intellectually problems in his father is demented and they are trying to get him committed so that he will not become power of staff attorney over them. Patient also states that his uncle had brain damage in the and all of the people in his boat Had the same brain damage. (Aftab Armenta) - Related Data Home Medications Medication Instructions Recorded Confirmed No Known Home Medications 02/13/22 02/13/22 Allergies Allergy/AdvReac Type Severity Reaction Status Date / Time dust Allergy Dyspnea Uncoded 02/13/22 22:35 Review of Systems ROS Other: All systems not noted in ROS Statement are negative. <Aftab Armenta - Last Filed: 02/13/22 20:17> ROS Other: All systems not noted in ROS Statement are negative. <Aftab Fitch - Last Filed: 02/14/22 02:19> ROS Statement: Those systems with pertinent positive or pertinent negative responses have been documented in the HPI. Past Medical History Past Medical History: No Reported History History of Any Multi-Drug Resistant Organisms: None Reported Past Surgical History: No Surgical Hx Reported Past Anesthesia/Blood Transfusion Reactions: No Reported Reaction Past Psychological History: Depression, Schizophrenia Smoking Status: Never smoker Past Alcohol Use History: None Reported Past Drug Use History: Marijuana - Past Family History Family Family Medical History: No Reported History <Aftab Armenta - Last Filed: 02/13/22 20:17> General Exam Limitations: no limitations <Aftab Armenta - Last Filed: 02/13/22 20:17> - General Exam Comments Initial Comments: GENERAL: Patient is well-developed and well-nourished. Patient is nontoxic and well- hydrated and is in no acute distress. ENT: Neck is soft and supple. No significant lymphadenopathy is noted. Oropharynx is clear. Moist mucous membranes. Neck has full range of motion without eliciting any pain. EYES: The sclera were anicteric and conjunctiva were pink and moist. Extraocular movements were intact and pupils were equal round and reactive to light. Eyelids were unremarkable. PULMONARY: Unlabored respirations. Good breath sounds bilaterally. No audible rales rhonchi or wheezing was noted. CARDIOVASCULAR: There is a regular rate and rhythm without any murmurs gallops or rubs. ABDOMEN: Soft and nontender with normal bowel sounds. SKIN: Skin is clear with no lesions or rashes and otherwise unremarkable. NEUROLOGIC: Patient is alert and oriented x3. Cranial nerves II through XII are grossly intact. Motor and sensory are also intact. Normal speech, volume and content. Symmetrical smile. MUSCULOSKELETAL: Normal extremities with adequate strength and full range of motion. LYMPHATICS: No significant lymphadenopathy is noted PSYCHIATRIC: Patient has pressured speech and very disorganized thoughts he is unable stand topic. Patient has some delusional thoughts about his father and uncle. When you asked the patient a question he starts talking about things that happened 2 years ago he jumped forward and time today and the back again 2 weeks ago. It is very difficult to get him to answer specific questions. (Aftab Armenta) Course Vital Signs 02/13/22 02/14/22 19:17 02:01 Temperature 98.6 F Pulse Rate 74 71 Respiratory 18 18 Rate Blood Pressure 165/85 144/85 O2 Sat by Pulse 96 97 Oximetry Medical Decision Making <Aftab Armenta - Last Filed: 02/13/22 20:17> - Medical Decision Making I read the petition. Patient's care was taken over by Dr. Fitch at 9 PM (Aftab Armenta) - Lab Data Lab Results 02/13/22 Range/Units 21:57 Urine Opiates Screen Not Detected (NotDetected) Ur Oxycodone Screen Not Detected (NotDetected) Urine Methadone Screen Not Detected (NotDetected) Ur Propoxyphene Screen Not Detected (NotDetected) Ur Barbiturates Screen Not Detected (NotDetected) U Tricyclic Antidepress Not Detected (NotDetected) Ur Phencyclidine Scrn Not Detected (NotDetected) Ur Amphetamines Screen Not Detected (NotDetected) U Methamphetamines Scrn Not Detected (NotDetected) U Benzodiazepines Scrn Not Detected (NotDetected) Urine Cocaine Screen Not Detected (NotDetected) U Marijuana (THC) Screen Detected H (NotDetected) Disposition <Aftab Armenta - Last Filed: 02/13/22 20:17> Is patient prescribed a controlled substance at d/c from ED?: No <Aftab Fitch - Last Filed: 02/14/22 02:19> Clinical Impression: Schizophrenia, Psychosis Disposition: TRANSFER TO PSYCH HOSP/UNIT Condition: Fair Referrals: None,Stated [Primary Care Provider] - 1-2 days
[2022-02-13 22:23] LABS: Amphetamine Screen,Urine Not Detected (NotDetected); Benzodiazepines Screen,Urine Not Detected (NotDetected); Cocaine Screen,Urine Not Detected (NotDetected); Opiate Screen,Urine Not Detected (NotDetected); Phencyclidine Screen,Urine Not Detected (NotDetected); Tricyclic Antidepressant,Urine Not Detected (NotDetected); Urn Cannabinoid Scrn Detected (NotDetected)
[2022-02-13 22:24] LABS: Barbiturate Screen,Urine Not Detected (NotDetected); Methadone Screen, Urine Not Detected (NotDetected); Oxycodone Screen, Urine Not Detected (NotDetected)
[2022-02-14] MEDS ORDERED: ACETAMINOPHEN TAB 325 MG TAB PO PRN (05:58)
[2022-02-14] MEDS ORDERED: HALOPERIDOL LACTATE 5 MG/ML 1 ML VIAL IM PRN (05:58)
[2022-02-14] MEDS ORDERED: MAGNESIUM HYDROXIDE 2,400 MG/10 ML CUP PO PRN (05:58)
[2022-02-14] MEDS ORDERED: MAG HYDROX/AL HYDROX/SIMETH 30 ML CUP PO PRN (05:58)
[2022-02-14] MEDS ORDERED: LORazepam 1 MG TAB PO PRN (05:58)
[2022-02-14] MEDS ORDERED: LORazepam 2 MG/ML INJ IM PRN (06:01)
[2022-02-14] MEDS ORDERED: haloperidoL 5 MG TAB PO PRN (06:02)
[2022-02-14] MEDS: NICOTINE 14MG/24HR PATCH TRANSDERM SCH (08:55)
--- NOTE | 2022-02-14 10:49 | P.HP ---
Psychiatric H&P - . H&P Date: 02/14/22 History & Physical: Allergies Allergy/AdvReac Type Severity Reaction Status Date / Time dust Allergy Dyspnea Uncoded 02/13/22 22:35 Vital Signs Temp 97.8 F 02/14/22 06:08 Pulse 80 02/14/22 06:08 Resp 18 02/14/22 06:08 BP 149/68 02/14/22 06:08 Pulse Ox 94 L 02/14/22 06:08 Intake & Output 02/13/22 02/14/22 02/14/22 18:59 06:59 18:59 Weight 68.039 kg Laboratory Last Values Urine Opiates Screen Not Detected (NotDetected) 02/13/22 21:57 Ur Oxycodone Screen Not Detected (NotDetected) 02/13/22 21:57 Urine Methadone Screen Not Detected (NotDetected) 02/13/22 21:57 Ur Propoxyphene Screen Not Detected (NotDetected) 02/13/22 21:57 Ur Barbiturates Screen Not Detected (NotDetected) 02/13/22 21:57 U Tricyclic Antidepress Not Detected (NotDetected) 02/13/22 21:57 Ur Phencyclidine Scrn Not Detected (NotDetected) 02/13/22 21:57 Ur Amphetamines Screen Not Detected (NotDetected) 02/13/22 21:57 U Methamphetamines Scrn Not Detected (NotDetected) 02/13/22 21:57 U Benzodiazepines Scrn Not Detected (NotDetected) 02/13/22 21:57 Urine Cocaine Screen Not Detected (NotDetected) 02/13/22 21:57 U Marijuana (THC) Screen Detected (NotDetected) H 02/13/22 21:57 Coronavirus (PCR) Not Detected (Not Detectd) 02/14/22 03:21 02/14/22 10:42 Psychiatric evaluation: This is a reevaluation on Bradford Mendieta who is a 36-year-old male and was hospitalize after patient was picked up by the police Patient remains a very vague and poor historian due to his circumstantiality tangentiality Patient continues to blame that his father has dementia and who has tried to commit him and was trying to poison him He states that he was trying to live with his father to take care of him Patient however then continues to go off on a different direction and was unable to complete any thought processes He reports that he was on Abilify 6 months ago and feels that the Prozac would be a good fit for his problem He states that he does not understand as to why he is here and that his father's be the one in the hospital The ER reports shows a court order where patient was yelling and causing disturbance very mobile crisis unit was called in. Patient was exhibiting paranoid thoughts delusional and disorganized thinking and that had been exhibiting agitation and impulsivity Patient was hospitalized for his safety and psychiatric evaluation and treatment Past history personal and social history Due to the patient's current thinking process this was difficult to assess Patient however reports that he has high school education and in the past has worked for [employer] He says that he has occasionally used marijuana in the past Patient also stated that he was on Abilify 6 months ago and that Prozac would be a good fit for him Patient is unable to give any other details Mental status examination: Reveals a young male who was casually groomed Patient is in hospital gown Speech remains somewhat pressured with circumstantiality and tangentiality Patient jumps from topic to topic without being able to complete a sentence or relay adequate information Thinking remains delusional with the expansiveness and projection. Insight and his problem is poor Formal and operational judgment are impaired Problem-solving skills are impaired Cognitively patient appears to be intact Diagnostic impression: Bipolar disorder manic type Cannabis use disorder by history Plan: The patient will be hospitalized on the unit for further evaluation and treatment Therapy will be focused on providing supportive care and improving his coping abilities with a multimodal treatment Patient will also participate in on the dum[facility] activities individual milieu group OT RT PT and pharmacotherapy Approximately length of stay would be 5-7 days Patient has not consented for any pharmacotherapy at this time except for Prozac which would be contraindicated at this time it is josiah We will continue encouragement for appropriate medication management and supportive care Pedro Pablo Anderson M.D. 02/14/22
--- NOTE | 2022-02-15 00:57 | P.CONS ---
History of Present Illness - Reason for Consult Consult date: 02/14/22 - History of Present Illness Patient is 36-year-old male with a PMH of depression and subsequently was brought into the emergency room after he was petitioned for aggressive and paranoid behavior. The patient was admitted to the mental health unit where he was seen and evaluated. The patient reports that he has been having numerous disagreements with his father. He reports no additional complaints. He denied tobacco or substance use. Denied chest discomfort, shortness of lipomatous no cough, nausea, vomiting, abdominal pain, diarrhea. Laboratory evaluation was remarkable with U tox positive for marijuana. Review of systems: Pertinent positives and negatives as discussed in HPI, a complete review of systems was performed and all other systems are negative. Physical examination: General: non toxic, no distress, appears at stated age, normal weight Derm: no unusual rashes/lesions no unusual ecchymoses, warm, dry Head: atraumatic, normocephalic, symmetric Eyes: EOMI, no lid lag, anicteric sclera, pupils equal round reactive to light ENT: Nose and ears atraumatic, no thrush, no pharyngeal erythema Neck: No thyromegaly, no cervical lymphadenopathy, trachea midline, supple Mouth: no lip lesion, mucus membranes moist Cardiovascular: S1S2 reg, no murmur, positive posterior tibial pulse bilateral, no edema, capillary refill less than 2 seconds Lungs: CTA bilateral, no rhonchi, no rales , no accessory muscle use Abdominal: soft, nontender to palpation, no guarding, no appreciable organomegaly, normal bowel sounds Ext: no gross muscle atrophy, muscle strength 5 out of 5 in all 4 extremities grossly, no contractures, Neuro: CN II-XI grossly intact, light touch intact all 4 extremities, finger to nose within normal limits, Psych: Alert, oriented, appropriate affect Assessment/plan Marijuana abuse -Advised on importance of cessation Aggressive behavior -As per psychiatry Thank you for allowing us to participate in the care of this patient. We will follow peripherally. Do not hesitate to contact us with questions. Someone can be reached from the [facility] hospitalist group at all hours of the day at [phone]. Past Medical History Past Medical History: No Reported History History of Any Multi-Drug Resistant Organisms: None Reported Past Surgical History: No Surgical Hx Reported Past Anesthesia/Blood Transfusion Reactions: No Reported Reaction Past Psychological History: Depression, Schizophrenia Smoking Status: Never smoker Past Alcohol Use History: None Reported Past Drug Use History: Marijuana - Past Family History Family Family Medical History: No Reported History Medications and Allergies Home Medications Medication Instructions Recorded Confirmed Type No Known Home Medications 02/13/22 02/13/22 History Allergies Allergy/AdvReac Type Severity Reaction Status Date / Time dust Allergy Dyspnea Uncoded 02/13/22 22:35 Physical Exam Vitals: Vital Signs Temp Pulse Pulse Resp BP BP Pulse Ox 02/14/22 06:08 97.8 F 80 18 149/68 94 L 02/14/22 05:50 75 18 134/87 99 02/14/22 02:01 71 18 144/85 97
[2022-02-15 08:49] LABS: ALT 15 U/L (4-49); AST 22 U/L (17-59); African American GFR (CKD) >90 (>60 ml/min/1.73 sqM); Albumin 4.8 g/dL (3.5-5.0); Alkaline Phosphatase 47 U/L (38-126); Anion Gap 8 mmol/L; Blood Urea Nitrogen 15 mg/dL (9-20); Calcium 9.5 mg/dL (8.4-10.2); Carbon Dioxide 22 mmol/L (22-30); Chloride 110 mmol/L (98-107); Glucose 116 mg/dL (74-99); Non-African American GFR(CKD) >90 (>60 ml/min/1.73 sqM); Potassium 4.4 mmol/L (3.5-5.1); Sodium 140 mmol/L (137-145); Total Bilirubin 1.2 mg/dL (0.2-1.3); Total Protein 7.6 g/dL (6.3-8.2)
[2022-02-15 08:59] LABS: Basophils % (A) 1 %; Eosinophils # (A) 0.1 k/uL (0-0.7); Eosinophils % (A) 2 %; HCT 45.8 % (39.0-53.0); HGB 16.3 gm/dL (13.0-17.5); Lymphocytes % (A) 27 %; MCH 32.8 pg (25.0-35.0); MCHC 35.5 g/dL (31.0-37.0); MCV 92.2 fL (80.0-100.0); Mean Platelet Volume 8.4; Monocytes # (A) 0.4 k/uL (0-1.0); Monocytes % (A) 5 %; Neutrophils # (A) 4.6 k/uL (1.3-7.7); Neutrophils % (A) 63 %; Platelet Count 234 k/uL (150-450); RBC 4.97 m/uL (4.30-5.90); RDW 12.8 % (11.5-15.5); WBC 7.3 k/uL (3.8-10.6)
--- NOTE | 2022-02-15 09:21 | P.PN ---
Subjective Progress Note Date: 02/15/22 Principal diagnosis: Bipolar disorder manic type Rule out Schizoaffective disorder bipolar type Cannabis use disorder unspecified Subjective data: No one seems to understand that my father is completely crazy and that he and my uncle both are conspiring to poison me I've all these health problems were my joints hurt and everything in my body is in pain They seem to poison me. Things and if she read these reports it looks like they would blame me for everything The social work manager has a vendetta against me and did not seem to wanting to listen I do not believe that I have any mental problems but I have more physical problems Objective data: Patient continues to be very demanding with pressured speech Patient continues to be circumstantial and tangential and has difficulty completing sentences Patient's focus is remains on projecting his issues all on his father and his uncle Insight into his problem remains very poor Patient's formal and operational judgment are impaired Plan: Patient refused to take any medications and has no insight into his problem Patient's formal and operational judgment are impaired and his problem solving skills are skewed by his psychosis Patient is currently on a court order to be held and until his presentation in the court for involuntary medication management Continue current care and support continue current supervision and redirection When necessary medications for any escalation of behavior or aggression Pedro Pablo Anderson M.D. 02/15/2022 Objective - Vital Signs Vital signs: Vital Signs Temp 98.5 F 02/15/22 06:23 Pulse 75 02/15/22 06:23 Resp 14 02/15/22 06:23 BP 132/58 02/15/22 06:23 Pulse Ox 94 L 02/14/22 06:08 Intake & Output 02/14/22 02/15/22 02/15/22 18:59 06:59 18:59 Weight 70.7 kg - Labs CBC & Chem 7: 02/15/22 07:58 02/15/22 07:58 Labs: Abnormal Lab Results - Last 24 Hours (Table) 02/15/22 Range/Units 07:58 Chloride 110 H (98-107) mmol/L Glucose 116 H (74-99) mg/dL
[2022-02-15] MEDS: NICOTINE 14MG/24HR PATCH TRANSDERM SCH (11:34)
[2022-02-15 11:47] LABS: Chol/HDL Ratio 2.57 Ratio; LDL Cholesterol,Calculated 78.7 mg/dL (0.0-131.0); VLDL Calculation 15.36 mg/dL (5.00-40.00)
[2022-02-16] MEDS: NICOTINE 14MG/24HR PATCH TRANSDERM SCH (08:15)
--- NOTE | 2022-02-16 09:37 | P.PN ---
Progress Note - Text Progress Note Date: 02/16/22 Interval History: Patient was seen wandering the hallways and was directable and agreeable to juvencio scanlon with marine underwriter in the office. Patient appears to have fair hygiene and grooming today. He continues to ramble and speak about his father. He states that his father has dementia and that he cannot take care of himself. He has poor insight however was fairly directable and appropriate during conversation. He claims that he was having side effects and problems at the haloperidol and does not want to resume taking that. He was agreeable to try Abilify once again as he has had good effects with that in the past. He also states that he wants to be put on Prozac for his mood and anxiety. He states that he is sleeping fairly. Continues to endorse significant paranoia and illogical thought process. At this time patient denies any suicidal or homical ideations, intent or plan. Patient denies any auditory, visual hallucinations. Mental Status Exam: General Appearance: Patient appears to be tall, thin, stated age is alert, pleasant, and cooperative. Patient is in no acute distress and has improved hygiene and grooming Behavior: Patient is calmly seated without any agitated behavior. Attempts to be cooperative. Speech: Patient's speech is fluent and nonpressured. Rambles. Mood/Affect: Patient reports their mood is "ok", affect is congruent and euthymic. Suicidality/Homicidality: Patient denies having any suicidal or homicidal ideation intent or plan. Perceptions: Patient denies any auditory or visual hallucinations. Though content/process: There is no evidence of any delusional thought content and thought process is linear and goal-directed. Rambles at times. Logical. Focused on his father and him having dementia. Memory and concentration: AOX3, grossly intact for the purposes of this session Judgment and insight: chronically poor, improving mildly. Impression: Schizophrenia Poor compliance with medications Cannabis use disorder Nicotine dependence Plan: -Patient continues to meet criteria for inpatient psychiatric admission for symptom stabilization and safety. Patient has signed adult voluntary form and was placed in patient's chart. -Medications: Abilify by mouth 5 mg daily for mood stabilization/psychosis. Added Prozac 20 mg daily for mood/anxiety. melatonin qhs prn for sleep -When necessary Ativan and Haldol for agitation/aggression. -NRT - nicotine patch -SW on board for discharge planning. Encouraged the patient to participate in milieu.
[2022-02-16] MEDS ORDERED: MELATONIN 3 MG TABLET PO PRN (09:38)
[2022-02-16] MEDS ORDERED: ARIPiprazole 5 MG TAB PO SCH (09:45)
[2022-02-16] MEDS: haloperidoL 5 MG TAB PO SCH (16:40)
[2022-02-17] MEDS: haloperidoL 5 MG TAB PO SCH (08:42)
[2022-02-17] MEDS: FLUoxetine HCL 20 MG CAP PO SCH (08:42)
--- NOTE | 2022-02-17 10:21 | P.PN ---
Progress Note - Text Progress Note Date: 02/17/22 Interval History: Patient was seen taking part in group and was directable and agreeable to speak with radio script writer in the office. Patient appears to have fair hygiene and grooming today. He continues to ramble and speak about his father and states that his father and him have a "toxic" relationship. He states that he eventually wants to move out of there but needs help from his mother. He states that his father has dementia and type 1diabetes. He claims that he feels much better taking the Haldol and apologized to radio script writer about abilify and requesting it yesterday. He states that he did not tolerate abilify well in the past. He also cliams that his mood and anxiety are good. He states that he is sleeping fairly. Continues to endorse significant paranoia and illogical thought process. At this time patient denies any suicidal or homical ideations, intent or plan. Patient denies any auditory, visual hallucinations. Mental Status Exam: General Appearance: Patient appears to be tall, thin, stated age is alert, pleasant, and cooperative. Patient is in no acute distress and has improved hyg iene and grooming Behavior: Patient is calmly seated without any agitated behavior. cooperative. Speech: Patient's speech is fluent and nonpressured. Rambles. Mood/Affect: Patient reports their mood is "good", affect is congruent and euthymic. Suicidality/Homicidality: Patient denies having any suicidal or homicidal ideation intent or plan. Perceptions: Patient denies any auditory or visual hallucinations. Though content/process: There is no evidence of any delusional thought content and thought process is linear and goal-directed. Rambles at times. Memory and concentration: AOX3, grossly intact for the purposes of this session Judgment and insight: chronically poor, improving mildly. Impression: Schizophrenia Poor compliance with medications Cannabis use disorder Nicotine dependence Plan: -Patient continues to meet criteria for inpatient psychiatric admission for symptom stabilization and safety. Patient has signed adult voluntary form and was placed in patient's chart. -Medications: continue with Haldol 5 mg daily for psychosis. continue with Prozac 20 mg daily for mood/anxiety. melatonin qhs prn for sleep -When necessary Ativan and Haldol for agitation/aggression. -NRT - nicotine patch -SW on board for discharge planning. Encouraged the patient to participate in milieu. likely discharge tomorrow.
[2022-02-18 07:02] VITALS: BP 113/56; PULSE 69; RESP 16; TEMP 98.2
[2022-02-18] MEDS: haloperidoL 5 MG TAB PO SCH (08:55)
[2022-02-18] MEDS: FLUoxetine HCL 20 MG CAP PO SCH (08:55)
--- NOTE | 2022-02-18 09:35 | P.DS ---
Providers Date of admission: 02/14/22 05:42 Expected date of discharge: 02/18/22 Attending physician: Khoi Patino MD Consults: 02/14/22 05:58 Consult Physician Routine Consulting Provider: Misty Arellano Consult Reason/Comments: For H & P for Medical Follow Up Do you want consulting provider notified?: Yes Primary care physician: Stated None - Discharge Diagnosis(es) (1) Schizophrenia Current Visit: Yes Status: Acute Priority: High (2) Poor compliance with medication Current Visit: Yes Status: Acute Priority: Medium (3) Cannabis use disorder, mild, abuse Current Visit: Yes Status: Acute Priority: Medium (4) Nicotine dependence Current Visit: Yes Status: Acute Priority: Low Hospital Course: Admission HPI: Admission note was completed by Dr Anderson "This is a reevaluation on Bradford Mendieta who is a 36-year-old male and was hospitalize after patient was picked up by the police. Patient remains a very vague and poor historian due to his circumstantiality tangentiality. Patient continues to blame that his father has dementia and who has tried to commit him and was trying to poison him. He states that he was trying to live with his father to take care of him. Patient however then continues to go off on a different direction and was unable to complete any thought processes. He reports that he was on Abilify 6 months ago and feels that the Prozac would be a good fit for his problem. He states that he does not understand as to why he is here and that his father's be the one in the hospital. The ER reports shows a court order where patient was yelling and c ausing disturbance very mobile crisis unit was called in. Patient was exhibiting paranoid thoughts delusional and disorganized thinking and that had been exhibiting agitation and impulsivity. Patient was hospitalized for his safety and psychiatric evaluation and treatment." Hospital course: Upon admission to the unit patient was directable and agreeable to commence treatment and signed adult voluntary form . Patient got along well with other patients on the unit and followed unit protocol. Patient was compliant with the medications and denied any side effects throughout hospital course. Patient was started on haloperidol by mouth 5 mg daily for psychosis. Patient was also started on Prozac 20 mg daily for mood/anxiety.. Patient spoke of his stressors and engaged in therapy both group and individual. Patient was also seen by medical team for history and physical exam. Throughout the course of the hospitalization patient gradually improved with regards to mood, anxiety, psychosis, sleep and returned back to their baseline level of functioning. On the day of discharge patient denied any suicidal or homicidal ideations intent or plan denied any auditory or visual hallucinations. Patient endorsed wanting to live for his health and family. The patient denied any access to guns or weapons. Patient denied any paranoia and did not endorse any delusions. Patient does not have a significant history of substance abuse however was counseled on abstaining from all substances including alcohol and marijuana. Patient was also counseled on the medications and need for regular compliance and was encouraged to follow-up with their outpatient appointment for mental health and also for primary care. Prior to discharge a family meeting will be arranged by licensed master social worker to answer any questions and ensure safety upon discharge. Patient will be discharged back to his father's house. Mental status exam: General Appearance: Patient appears to be tall, thin, long hair, stated age is alert, pleasant, and cooperative. Patient is in no acute distress and has improved hygiene and grooming Behavior: Patient is calmly seated without any agitated behavior. Speech: Patient's speech is fluent and nonpressured. Mood/Affect: Patient reports their mood is "better", affect is congruent and euthymic. Suicidality/Homicidality: Patient denies having any suicidal or homicidal ideation intent or plan. Perceptions: Patient denies any auditory or visual hallucinations. Though content/process: There is no evidence of any delusional thought content and thought process is linear and goal-directed. Memory and concentration: AOX3, grossly intact for the purposes of this session. Can spell "WORLD" backwards correctly. Judgment and insight: chronically poor, however has improved with guarded prognosis Impression: Schizophrenia Poor compliance with medications Cannabis use disorder mild Nicotine dependence Plan: -Continue with discharge today as patient has improved and stabilized psychiatrically and is not currently an imminent threat to himself and/or others. Patient will remain at chronically elevated risk for harm to self and/or others due to his impulsivity and chronically poor insight and judgment. -Continue medications: Haloperidol by mouth 5 mg daily for psychosis. Patient was offered to switched onto HART however he declined at this time. Prozac 20 mg daily for mood/anxiety. -Patient was counseled on the need for medication compliance and appropriate follow-up at mental health and also primary care for medical issues. Patient verbalized understanding and agreed. -Social work to arrange for and conduct family meeting to ensure safety upon discharge and answer any questions/concerns. Social work also to arrange for patients follow up appointments with [facility] for psychiatric care along with follow up with primary care provider. -Patient counseled on abstaining from recreational drugs and marijuana and alcohol. Was informed/educated on the adverse effects on their physical and mental health. Patient verbally agreed and understood. -Patient was instructed to return to the hospital or seek immediate medical care if their psychiatric or medical symptoms do worsen or reoccur. Allergies Allergy/AdvReac Type Severity Reaction Status Date / Time dust Allergy Dyspnea Uncoded 02/13/22 22:35 Laboratory Results WBC 7.3 k/uL (3.8-10.6) 02/15/22 07:58 RBC 4.97 m/uL (4.30-5.90) 02/15/22 07:58 Hgb 16.3 gm/dL (13.0-17.5) 02/15/22 07:58 Hct 45.8 % (39.0-53.0) 02/15/22 07:58 MCV 92.2 fL (80.0-100.0) 02/15/22 07:58 MCH 32.8 pg (25.0-35.0) 02/15/22 07:58 MCHC 35.5 g/dL (31.0-37.0) 02/15/22 07:58 RDW 12.8 % (11.5-15.5) 02/15/22 07:58 Plt Count 234 k/uL (150-450) 02/15/22 07:58 MPV 8.4 02/15/22 07:58 Neutrophils % 63 % 02/15/22 07:58 Lymphocytes % 27 % 02/15/22 07:58 Monocytes % 5 % 02/15/22 07:58 Eosinophils % 2 % 02/15/22 07:58 Basophils % 1 % 02/15/22 07:58 Neutrophils # 4.6 k/uL (1.3-7.7) 02/15/22 07:58 Lymphocytes # 2.0 k/uL (1.0-4.8) 02/15/22 07:58 Monocytes # 0.4 k/uL (0-1.0) 02/15/22 07:58 Eosinophils # 0.1 k/uL (0-0.7) 02/15/22 07:58 Basophils # 0.0 k/uL (0-0.2) 02/15/22 07:58 Sodium 140 mmol/L (137-145) 02/15/22 07:58 Potassium 4.4 mmol/L (3.5-5.1) 02/15/22 07:58 Chloride 110 mmol/L (98-107) H 02/15/22 07:58 Carbon Dioxide 22 mmol/L (22-30) 02/15/22 07:58 Anion Gap 8 mmol/L 02/15/22 07:58 BUN 15 mg/dL (9-20) 02/15/22 07:58 Creatinine 0.89 mg/dL (0.66-1.25) 02/15/22 07:58 Est GFR (CKD-EPI)AfAm >90 (>60 ml/min/1.73 sqM) 02/15/22 07:58 Est GFR (CKD-EPI)NonAf >90 (>60 ml/min/1.73 sqM) 02/15/22 07:58 Glucose 116 mg/dL (74-99) H 02/15/22 07:[address] Glu mg/dL 102 02/15/22 07:58 Hemoglobin A1c 5.2 % (0.0-6.0) 02/15/22 07:58 Calcium 9.5 mg/dL (8.4-10.2) 02/15/22 07:58 Total Bilirubin 1.2 mg/dL (0.2-1.3) 02/15/22 07:58 AST 22 U/L (17-59) 02/15/22 07:58 ALT 15 U/L (4-49) 02/15/22 07:58 Alkaline Phosphatase 47 U/L (38-126) 02/15/22 07:58 Total Protein 7.6 g/dL (6.3-8.2) 02/15/22 07:58 Albumin 4.8 g/dL (3.5-5.0) 02/15/22 07:58 Triglycerides 76.80 mg/dL (0.00-149.00) 02/15/22 07:58 Cholesterol 154.00 mg/dL (0.00-200.00) 02/15/22 07:58 LDL Cholesterol, Calc 78.7 mg/dL (0.0-131.0) 02/15/22 07:58 VLDL Cholesterol, Calc 15.36 mg/dL (5.00-40.00) 02/15/22 07:58 HDL Cholesterol 59.90 mg/dL (40.00-60.00) 02/15/22 07:58 Cholesterol/HDL Ratio 2.57 Ratio 02/15/22 07:58 TSH 2.270 mIU/L (0.465-4.680) 02/15/22 07:58 Urine Opiates Screen Not Detected (NotDetected) 02/13/22 21:57 Ur Oxycodone Screen Not Detected (NotDetected) 02/13/22 21:57 Urine Methadone Screen Not Detected (NotDetected) 02/13/22 21:57 Ur Propoxyphene Screen Not Detected (NotDetected) 02/13/22 21:57 Ur Barbiturates Screen Not Detected (NotDetected) 02/13/22 21:57 U Tricyclic Antidepress Not Detected (NotDetected) 02/13/22 21:57 Ur Phencyclidine Scrn Not Detected (NotDetected) 02/13/22 21:57 Ur Amphetamines Screen Not Detected (NotDetected) 02/13/22 21:57 U Methamphetamines Scrn Not Detected (NotDetected) 02/13/22 21:57 U Benzodiazepines Scrn Not Detected (NotDetected) 02/13/22 21:57 Urine Cocaine Screen Not Detected (NotDetected) 02/13/22 21:57 U Marijuana (THC) Screen Detected (NotDetected) H 02/13/22 21:57 Coronavirus (PCR) Not Detected (Not Detectd) 02/14/22 03:21 Vital Signs Temp 98.2 F 02/18/22 06:34 Pulse 69 02/18/22 06:34 Resp 16 02/18/22 06:34 BP 113/56 02/18/22 06:34 Pulse Ox 97 02/17/22 07:05 Patient Condition at Discharge: Stable Plan - Discharge Summary New Discharge Prescriptions: New haloperidoL [Haldol] 5 mg PO DAILY 30 Days tab FLUoxetine HCL [PROzac] 20 mg PO DAILY 30 Days cap Discharge Medication List FLUoxetine HCL [PROzac] 20 mg PO DAILY 30 Days cap 02/18/22 [Rx] haloperidoL [Haldol] 5 mg PO DAILY 30 Days tab 02/18/22 [Rx] Follow up Appointment(s)/Referral(s): None,Stated [Primary Care Provider] - 1-2 days Activity/Diet/Wound Care/Special Instructions: Activity and diet as tolerated. Avoid the use of street drugs and alcohol. Take all medications as prescribed. When you are in need of refills on your medications please contact your medical provider and/or outpatient psychiatrist to have this done. Please go to scheduled outpatient appointment for aftercare treatment. If symptoms return or become worse, call the crisis line at and/or go to the nearest emergency room for evaluation Discharge Disposition: HOME SELF-CARE
== END 2022-02-18 12:03 | disposition home or self-care (01) | DRG 885 ==
LOC: EC 19:10 → 3MHU 02-14 05:42
PROVIDERS: ADMIT Psychiatry & Neurology Psychiatry; ATTEND Psychiatry & Neurology Psychiatry
DX: F25.9 Schizoaffective disorder, unspecified (principal); R45.851 Suicidal ideations; Z81.0 Family history of intellectual disabilities; Z82.0 Family history of epilepsy and other diseases of the nervous system; F12.10 Cannabis abuse, uncomplicated; F17.210 Nicotine dependence, cigarettes, uncomplicated; F41.9 Anxiety disorder, unspecified; R45.1 Restlessness and agitation; Z79.899 Other long term (current) drug therapy; Z91.14 Patient's other noncompliance with medication regimen; Z20.822 Contact with and (suspected) exposure to COVID-19
CPT/HCPCS: 80053; 80061; 80306; 82075; 83036; 84443; 85025; 87635; 99285

== ENCOUNTER → 2022-04-21 | Outpatient (CLI) | payer OTHER ==
[2022-04-22 11:39] LABS: Cryptosporidium Antigen Negative (Negative)
== END | disposition home or self-care (01) ==
LOC: LABWHC1 14:12 → EDSTATUS 14:15
PROVIDERS: ATTEND Family Medicine
DX: F41.1 Generalized anxiety disorder (principal); M25.561 Pain in right knee; M25.562 Pain in left knee; R53.83 Other fatigue; R19.7 Diarrhea, unspecified
CPT/HCPCS: 36415; 82272; 83630; 87045; 87046; 87328; 87329

== ENCOUNTER → 2022-07-17 | Outpatient (CLI) | payer OTHER ==
--- NOTE | 2022-07-17 18:24 | MR ---
EXAMINATION TYPE: MR knee RT wo con DATE OF EXAM: 07/17/2022 COMPARISON: Outside radiograph 06/30/2022 HISTORY: 36-year-old male M25.561 Pain in right knee, RUNNING, OVEREXTENDED IT BAND TECHNIQUE: Multiplanar, multisequence imaging of the right knee is performed without IV contrast. FINDINGS: There is mild increased signal along the mid to distal intact ACL fibers. PCL and MCL are intact. There is some intermediate signal at the origin of the popliteus tendon and fluid extending along the tendon sheath. LCL complex otherwise intact including the iliotibial band insertion. Medial and late ral menisci are intact. There is minimal superficial cartilage fissuring along the mid weightbearing aspect of the lateral fe moral condyle and also along the mid central aspect of the medial femoral condyle. Additional minimal fissuring along the mid apex of the patella, axial image 27. Overall tricompartmental articular cartilage is maintained. Extensor mechanism is intact. There is a [id number] knee joint effusion without Winston's cyst. Normal popliteal artery anatomy and muscle bulk. No suspicious bone marrow replacement. IMPRESSION: 1. ACL is intact but shows mild increased signal along the mid to distal fibers. Query low-grade ACL sprain. 2. Some increased signal also at the popliteus tendon origin could represent an additional mild sprai n. 3. Minimal superficial cartilage fissuring within the mid weightbearing aspect of the lateral compart ment and mid central aspect of the medial compartment. Also along the mid apex of the patella. Overal l cartilage is maintained. 4. [id number] knee joint effusion.
== END | disposition home or self-care (01) ==
LOC: RADMRIMAIN 13:12
PROVIDERS: ATTEND Orthopaedic Surgery
DX: S83.512A Sprain of anterior cruciate ligament of left knee, initial encounter (principal); M25.462 Effusion, left knee

== ENCOUNTER 2023-01-28 21:48 | Inpatient (IN) | payer MEDICAID, OTHER ==
--- NOTE | 2023-01-28 23:20 | ED ---
General Adult HPI - General Chief complaint: Psychiatric Symptoms Stated complaint: Mental Health Time Seen by Provider: 01/28/23 22:20 Source: patient, RN notes reviewed, old records reviewed Mode of arrival: ambulatory Limitations: no limitations - History of Present Illness Initial comments: Patient is a 37-year-old male with past medical history remarkable for psychiatric illness who presents emergency department as a court ordered petition for mental health evaluation. Patient thinks he knows why he is here, as he did have a peripheral appointment with his [facility] physician but he had an early. The petition states that the patient's poor insight into needing treatment for himself and has been off medications. Patient states he had to leave early because his father is having many medical issues any other taken to an appointment. Patient currently denies any suicidal or homicidal ideations, attempts, plans. Denies any visual or auditory hallucinations. Denies any other acute complaints at this time. He is cooperative. Understands that he needs to be evaluated by [facility]. Is asking for a blanket. Denies any alcohol or drug use. States he has not been on any medications at home. - Related Data Previous Rx's Medication Instructions Recorded FLUoxetine HCL [PROzac] 30 mg PO DAILY 15 Days #45 cap 01/12/23 haloperidoL [Haldol] 7.5 mg PO HS 30 Days #45 tab 01/12/23 Allergies Allergy/AdvReac Type Severity Reaction Status Date / Time dust Allergy Dyspnea Uncoded 01/05/23 20:59 Review of Systems ROS Statement: Those systems with pertinent positive or pertinent negative responses have been documented in the HPI. Review of Systems: CONST: Denies fever EYES: Denies blurry vision ENT: Denies nasal congestion C/V: Denies Chest pain RESP: Denies shortness of breath GI: Denies abdominal pain : Denies dysuria SKIN: Denies rash. MSK: Denies joint pain. NEURO: Denies headache PSYCH: Denies suicidal and homicidal ideations/plans/attempts. Denies visual or auditory hallucinations. ROS Other: All systems not noted in ROS Statement are negative. Past Medical History Past Medical History: No Reported History History of Any Multi-Drug Resistant Organisms: None Reported Past Surgical History: No Surgical Hx Reported Past Anesthesia/Blood Transfusion Reactions: No Reported Reaction Past Psychological History: Depression, Schizophrenia Smoking Status: Never smoker Past Alcohol Use History: None Reported Past Drug Use History: Marijuana - Past Family History Family Family Medical History: Hypertension General Exam - General Exam Comments Initial Comments: General: Appears in no acute distress. HEAD: Normal with no signs of head trauma. EYES: PERRLA, EOMI, conjunctiva normal, no discharge. ENT: Hearing grossly intact, normal oropharynx. RESPIRATORY: Clear breath sounds bilaterally. No wheezes, rales, or rhonchi. C/V: Regular rate and rhythm. S1 and S2 auscultated, no edema, peripheral pulses 2+ and intact throughout ABD: Abd is soft, nontender, nondistended EXT: Normal range of motion, no obvious deformity SKIN: No rashes or lesions observed on exposed skin. NEURO: Alert and oriented 4. Limitations: no limitations Course Vital Signs 01/28/23 22:04 Temperature 98.1 F Pulse Rate 74 Respiratory 14 Rate Blood Pressure 135/82 O2 Sat by Pulse 97 Oximetry Medical Decision Making - Medical Decision Making Was pt. sent in by a medical professional or institution (, PA, TABLE SAW OPERATOR, urgent care, hospital, or senior living...) When possible be specific @ -Yes, court-ordered petition for psychiatric evaluation. Did you speak to anyone other than the patient for history (EMS, parent, family, police, friend...)? What history was obtained from this source @ -No Did you review nursing and triage notes (agree or disagree)? Why? @ -I reviewed and agree with nursing and triage notes Were old charts reviewed (outside hosp., previous admission, EMS record, old EKG, old radiological studies, urgent care reports/EKG's, senior living records)? Report findings @ -No old charts were reviewed Differential Diagnosis (chest pain, altered mental status, abdominal pain women, abdominal pain men, vaginal bleeding, weakness, fever, dyspnea, syncope, headache, dizziness, GI bleed, back pain, seizure, CVA, palpatations, mental health, musculoskeletal)? @ -Differential Mental Health Depression, anxiety, bipolar, psychosis, schizophrenia, borderline personality, situational depression, adjustment disorder, behavioral disorder, brain tumor, malingering, substance abuse, encephalopathy, medication reaction, dementia, hypothyroidism, degenerative neurologic disorder, lupus.... This is not meant to be all-inclusive list EKG interpreted by me (3pts min.). @ -None done X-rays interpreted by me (1pt min.). @ -None done CT interpreted by me (1pt min.). @ -None done U/S interpreted by me (1pt. min.). @ -None done What testing was considered but not performed or refused? (CT, X-rays, U/S, la bs)? Why? @ -None What meds were considered but not given or refused? Why? @ -None Did you discuss the management of the patient with other professionals (professionals i.e. , PA, TABLE SAW OPERATOR, lab, RT, psych nurse, social science professor, clinic supervisor, teacher, neighborhood conservation officer, case management director)? Give summary @ -EPS was notified that the patient is medically cleared for evaluation by psychiatry. Was smoking cessation discussed for >3mins.? @ -No Was critical care preformed (if so, how long)? @ -No Were there social determinants of health that impacted care today? How? (Homelessness, low income, unemployed, alcoholism, drug addiction, transportation, low edu. Level, literacy, decrease access to med. care, nursing home, rehab)? @ -No Was there de-escalation of care discussed even if they declined (Discuss DNR or withdrawal of care, Hospice)? DNR status @ -No What co-morbidities impacted this encounter? (DM, HTN, Smoking, COPD, CAD, Cancer, CVA, ARF, Chemo, Hep., AIDS, mental health diagnosis, sleep apnea, morbid obesity)? @ -History of psychiatric illness Was patient admitted / discharged? Hospital course, mention meds given and route, prescriptions, significant lab abnormalities, going to OR and other pertinent info. @ -Based on the patient's presentation and physical exam, I'm concerned for psychiatric illness for the patient. He does have a court-ordered petition. They're concerned that the patient is unaware of the need to take his medications and is not taking any psychiatric medications. Patient has no other acute complaints at this time. He was placed in green scrubs. Sitter was ordered. BAT is 0. UDS is pending. Patient is cooperative. Vital signs within acceptable limits. At this time, patient is medically cleared for evaluation by psychiatry. Disposition is pending psychiatric evaluation. EPS is notified by nursing staff. EPS evaluated the patient and spoke with family members. They did determine that the patient is paranoid, and that his family stressors do not appear to be true. They did recommend inpatient admission. Clinical certificate was compl eted by myself. Patient was therefore admitted to inpatient psychiatry in stable condition. Undiagnosed new problem with uncertain prognosis? @ -No Drug Therapy requiring intensive monitoring for toxicity (Heparin, Nitro, Insulin, Cardizem)? @ -No Were any procedures done? @ -No Diagnosis/symptom? @ -Encounter for psychiatric evaluation noncompliant with medications. Acute, or Chronic, or Acute on Chronic? @ -Acute Uncomplicated (without systemic symptoms) or Complicated (systemic symptoms)? @ -Uncomplicated Side effects of treatment? @ -No Exacerbation, Progression, or Severe Exacerbation? @ -No Poses a threat to life or bodily function? How? (Chest pain, USA, [place], pneumonia, PE, COPD, DKA, ARF, appy, cholecystitis, CVA, Diverticulitis, Homicidal, Suicidal, threat to staff... and all critical care pts) @ -Yes, possible threat to self as he is off psychiatric medications. Diagnosis/symptom? @ -Paranoia Acute, or Chronic, or Acute on Chronic? @ -Acute on chronic Uncomplicated (without systemic symptoms) or Complicated (systemic symptoms)? @ -Uncomplicated Side effects of treatment? @ -none Exacerbation, Progression, or Severe Exacerbation] @ -no Poses a threat to life or bodily function? @ -Yes, possible threat to self and others as the patient is paranoid at this time is not taking his psychiatric medications. - Lab Data Lab Results 01/29/23 01/29/23 Range/Units 00:35 01:20 Urine Opiates Screen Not Detected (NotDetected) Ur Oxycodone Screen Not Detected (NotDetected) Urine Methadone Screen Not Detected (NotDetected) Ur Propoxyphene Screen Not Detected (NotDetected) Ur Barbiturates Screen Not Detected (NotDetected) U Tricyclic Antidepress Not Detected (NotDetected) Ur Phencyclidine Scrn Not Detected (NotDetected) Ur Amphetamines Screen Not Detected (NotDetected) U Methamphetamines Scrn Not Detected (NotDetected) U Benzodiazepines Scrn Not Detected (NotDetected) Urine Cocaine Screen Not Detected (NotDetected) U Marijuana (THC) Screen Detected H (NotDetected) Coronavirus (PCR) Not Detected (Not Detectd) Critical Care Time Critical Care Time: Yes Total Critical Care Time: 35 Critical Care Time: Upon my evaluation, this patient had a high probability of imminent or life- threatening deterioration due to psychiatric illness, psychiatric evaluation, which required my direct attention, intervention, and personal management. I have personally provided 35 minutes of critical care time exclusive of time spent on separately billable procedures. Time includes review of laboratory data, radiology results, discussion with consultants, and monitoring for potential decompensation. Interventions were performed as documented in my note. Disposition Clinical Impression: Encounter for psychiatric assessment, Paranoia, Nonadherence to medication Disposition: ADMITTED IP TO THIS [facility] Condition: Stable Time of Disposition: 01:00
[2023-01-29 01:06] LABS: Amphetamine Screen,Urine Not Detected (NotDetected); Barbiturate Screen,Urine Not Detected (NotDetected); Benzodiazepines Screen,Urine Not Detected (NotDetected); Cocaine Screen,Urine Not Detected (NotDetected); Methadone Screen, Urine Not Detected (NotDetected); Opiate Screen,Urine Not Detected (NotDetected); Oxycodone Screen, Urine Not Detected (NotDetected); Phencyclidine Screen,Urine Not Detected (NotDetected); Tricyclic Antidepressant,Urine Not Detected (NotDetected); Urn Cannabinoid Scrn Detected (NotDetected)
[2023-01-29] MEDS ORDERED: MAG HYDROX/AL HYDROX/SIMETH 30 ML CUP PO PRN (02:18)
[2023-01-29] MEDS ORDERED: HALOPERIDOL LACTATE 5 MG/ML 1 ML VIAL IM PRN (02:18)
[2023-01-29] MEDS ORDERED: MAGNESIUM HYDROXIDE 2,400 MG/10 ML CUP PO PRN (02:18)
[2023-01-29] MEDS ORDERED: LORazepam 1 MG TAB PO PRN (02:18)
[2023-01-29] MEDS ORDERED: LORazepam 2 MG/ML INJ IM PRN (02:24)
[2023-01-29] MEDS ORDERED: haloperidoL 5 MG TAB PO PRN (02:25)
--- NOTE | 2023-01-29 03:11 | P.PN ---
Progress Note - Text Progress Note Date: 01/29/23 patient refusing care , refusing admission , could not be evaluated at this time
[2023-01-29] MEDS ORDERED: FLUoxetine HCL 10 MG CAP PO SCH (09:00)
[2023-01-29] MEDS: NICOTINE 14MG/24HR PATCH TRANSDERM SCH (09:26)
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
[2023-01-29 16:54] LABS: Appearance,Urine Clear (Clear); Bilirubin,Urine Negative (Negative); Blood,Urine Negative (Negative); Color,Urine Light Yellow; Glucose,Urine (UA) Negative (Negative); Ketones,Urine Negative (Negative); Leukocyte Esterase,Urine Negative (Negative); Nitrite,Urine Negative (Negative); Protein,Urine Negative (Negative); Specific Gravity,Urine 1.013 (1.001-1.035); Urobilinogen,Urine <2.0 mg/dL (<2.0)
[2023-01-29] MEDS ORDERED: haloperidoL 5 MG TAB PO SCH (21:00)
[2023-01-29] MEDS: PALIPERIDONE 3 MG TAB.ER.24 PO SCH (21:34)
--- NOTE | 2023-01-29 22:36 | P.CONS ---
History of Present Illness - Reason for Consult Consult date: 01/29/23 - History of Present Illness The patient is a 37-year-old male with a PMH of recreational marijuana use and schizoaffective disorder who was brought into the emergency room after a cortical border due to failure to show up for his appointments. The patient was admitted to the mental health unit where he was seen and evaluated. The patient states that his father had forgotten to list his appointments on the board which caused him to miss them. He denied any physical complaints at the time of interview. He reports feeling at his baseline. Denied experiencing chest discomfort, shortness of breath, fever, chills, cough, nausea, vomiting, abdominal pain, diarrhea. Reports recreational marijuana use to help him with his anxiety and depression. Also reports smoking half pack of cigarettes daily. Review of systems: Pertinent positives and negatives as discussed in HPI, a complete review of systems was performed and all other systems are negative. Physical examination: General: non toxic, no distress, appears at stated age, normal weight Derm: no unusual rashes/lesions, no unusual ecchymoses, warm, dry Head: atraumatic, normocephalic, symmetric Eyes: EOMI, no lid lag, anicteric sclera ENT: Nose and ears atraumatic, no thrush, no pharyngeal erythema Neck: trachea midline, supple Mouth: no lip lesion, mucus membranes moist Cardiovascular: S1S2 reg, no murmur, no edema Lungs: CTA bilateral, no rhonchi, no rales , no accessory muscle use Abdominal: soft, nontender to palpation, no guarding Ext: no gross muscle atrophy, no contractures, Neuro: No gross focal neuro deficits noted Psych: Alert, oriented, appropriate affect Assessment: Recreational marijuana and tobacco use Schizoaffective disorder Imaging: None performed Data Review: Laboratory evaluation reviewed with urine toxicology positive for marijuana and UA unremarkable Plan: Advised patient on importance of cessation from marijuana and tobacco use Defer management of schizoaffective disorder to primary psychiatry service Thank you for allowing us to participate in the care of this patient. We will f nika peripherally. Do not hesitate to contact us with questions. Someone can be reached from the [facility] hospitalist group at all hours of the day at [phone]. Past Medical History Past Medical History: No Reported History History of Any Multi-Drug Resistant Organisms: None Reported Past Surgical History: No Surgical Hx Reported Past Anesthesia/Blood Transfusion Reactions: No Reported Reaction Smoking Status: Former smoker - Past Family History Family Family Medical History: Hypertension Medications and Allergies Home Medications Medication Instructions Recorded Confirmed Type FLUoxetine HCL [PROzac] 30 mg PO DAILY 15 Days #45 cap 01/12/23 01/29/23 Rx haloperidoL [Haldol] 7.5 mg PO HS 30 Days #45 tab 01/12/23 01/29/23 Rx Allergies Allergy/AdvReac Type Severity Reaction Status Date / Time dust Allergy Dyspnea Uncoded 01/29/23 14:38 Physical Exam Vitals: Vital Signs Temp Pulse Resp BP Pulse Ox 01/29/23 02:31 97.5 F L 74 18 135/71 97 Intake and Output 01/29/23 01/29/23 01/29/23 06:59 14:59 22:59 Other: Weight 68.039 kg Results Labs: Abnormal Lab Results - Last 24 Hours (Table) 01/29/23 Range/Units 00:35 U Marijuana (THC) Screen Detected H (NotDetected)
[2023-01-30] MEDS: NICOTINE 14MG/24HR PATCH TRANSDERM SCH (09:21)
[2023-01-30] MEDS: PALIPERIDONE 3 MG TAB.ER.24 PO SCH ×2 (09:21→21:28)
--- NOTE | 2023-01-30 11:27 | P.PN ---
Progress Note - Text Progress Note Date: 01/30/23 The patient was seen for a follow-up Is wandering the hallway and agreed to talk to this administrative underwriter Patient presents with disheveled appearance Patient reports that he was picked up and brought here against his will and that he does not need to be here He says that he and his father having problems and that he needs to get out on his own and be by himself He also feels that the whole situation is a bureaucratic flaw Patient says that he was being forced to follow-up with the [facility] which was mandat ory and he did not He says that he was trying to help his father was getting his toe amputated from diabetes and that he had no time to make psychiatric appointments He says that the he also tried to walk out from his psych appointment and that they ended up calling the police He denies that he has any problems or any mental illness or there is any need for any treatment MENTAL STATUS EXAM: General Appearance: Patient appears to be stated age is alert, difficult to redirect, argumentative. Patient appears to have fair hygiene and grooming. longer hair, gamboa. Behavior: Patient displays psychomotor agitation. uncooperative argumentative. Speech: Patient's speech is pressured, non linear. Tangential/circumstantial. Patient continues to ramble and is difficult to interrupt where he does not allow to have a word edgewise Mood/Affect: Patient reports their mood is "I'm fine". Affect is intense and expansive. Suicidality/Homicidality: Patient denies having any homicidal ideation intent or plan. Denies any suicidal ideations intent or plan Perceptions: Patient denies any visual hallucinations and denies any auditory hallucinations Though content/process: Paranoid. Disorganized. Appears to respond to internal stimuli. Delusional, multiple delusions loosely formed. Memory and concentration: AOX3, grossly intact for the purposes of this session. Can spell "WORLD" backwards Judgment and insight: poor STRENGTHS/WEAKNESSES: Strength is that the patient is in relatively good health. Weakness is that the patient has poor insight. INTELLECT: average IMPRESSIONS: Schizophrenia Cannabis use disorder PLAN: -Patient is admitted under involuntary status to MHU for stabilization of psychiatric symptoms and safety. Patient did not sign adult voluntary form and medication consent and is placed in patient's chart. second certificate was completed and filed. -Medications : Will start patient on invega 3 mg bid for mood stabilization/psychosis. will hold haldol and prozac at this time -Ativan and Haldol PRN for agitation/aggression -Patient was counselled on substance abuse and desired to cut back on use -Patient was informed of the risks, benefits and side effects of the medication -Internal Medicine consult to perform medical evaluation and physical. -SW on board for discharge planning. Encourage patient to participate in groups to work on coping skills. awaiting court and deferral date. Pedro Pablo Anderson M.D.
[2023-01-31] MEDS: NICOTINE 14MG/24HR PATCH TRANSDERM SCH (08:00)
[2023-01-31] MEDS: PALIPERIDONE 3 MG TAB.ER.24 PO SCH ×2 (08:00→20:09)
--- NOTE | 2023-01-31 09:47 | P.PN ---
Progress Note - Text Progress Note Date: 01/31/23 The patient was seen for a follow-up Patient again complains about being trapped here He also feels that the whole situation is a bureaucratic flaw Patient says that he was being forced to follow-up with the [facility] which was mandatory and he did not He says that he was trying to help his father was getting his toe amputated from diabetes and that he had no time to make psychiatric appointments He says that the he also tried to walk out from his psych appointment and that they ended up calling the police He denies that he has any problems or any mental illness or there is any need for any treatment Remains extremely repetitious with some pressured speech and tangentiality MENTAL STATUS EXAM: General Appearance: Patient appears to be stated age is alert, difficult to redirect, argumentative. Patient appears to have fair hygiene and grooming. longer hair, gamboa. Behavior: Patient displays psychomotor agitation. uncooperative argumentative. Speech: Patient's speech is pressured, non linear. Tangential/circumstantial. Patient continues to ramble and is difficult to interrupt where he does not allow to have a word edgewise Mood/Affect: Patient reports their mood is "I'm fine". Affect is intense and expansive. Suicidality/Homicidality: Patient denies having any homicidal ideation intent or plan. Denies any suicidal ideations intent or plan Perceptions: Patient denies any visual hallucinations and denies any auditory hallucinations Though content/process: Paranoid. Disorganized. Appears to respond to internal stimuli. Delusional, multiple delusions loosely formed. Memory and concentration: AOX3, grossly intact for the purposes of this session. Can spell "WORLD" backwards Judgment and insight: poor STRENGTHS/WEAKNESSES: Strength is that the patient is in relatively good health. Weakness is that the patient has poor insight. INTELLECT: average IMPRESSIONS: Schizophrenia Cannabis use disorder PLAN: -Patient is admitted under involuntary status to [facility] for stabilization of psychiatric symptoms and safety. Patient did not sign adult voluntary form and medication consent and is placed in patient's chart. second certificate was completed and filed. -Medications : Will start patient on invega 3 mg bid for mood stabilization/psychosis. will hold haldol and prozac at this time -Ativan and Haldol PRN for agitation/aggression -Patient was counselled on substance abuse and desired to cut back on use -Patient was informed of the risks, benefits and side effects of the medication -Internal Medicine consult to perform medical evaluation and physical. -SW on board for discharge planning. Encourage patient to participate in groups to work on coping skills. awaiting court and deferral date. Pedro Pablo Anderson M.D.
[2023-02-01] MEDS: PALIPERIDONE 3 MG TAB.ER.24 PO SCH (08:45)
[2023-02-01] MEDS: NICOTINE 14MG/24HR PATCH TRANSDERM SCH (09:03)
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
[2023-02-01] MEDS ORDERED: cloNIDine HCL 0.1 MG TAB PO STA (14:51)
[2023-02-01] MEDS ORDERED: ACETAMINOPHEN TAB 325 MG TAB PO PRN (15:41)
[2023-02-01] MEDS ORDERED: PALIPERIDONE IM 234 MG/1.5 ML SYG IM ONE (16:00)
[2023-02-01] MEDS: PALIPERIDONE 6 MG TAB.ER.24 PO SCH (20:49)
[2023-02-02] MEDS: PALIPERIDONE 3 MG TAB.ER.24 PO SCH (08:42)
[2023-02-02] MEDS: NICOTINE 14MG/24HR PATCH TRANSDERM SCH (08:42)
--- NOTE | 2023-02-02 11:26 | P.PN ---
Progress Note - Text Progress Note Date: 02/02/23 Interval History: Patient was seen laying in his bed this morning and was agreeable to speak to group underwriter in the office today. He claims that the invega pills have been wrking and helping him so far. he states that he still does not want the long acting shot and refused it yestyerday. he states that he is not having any side effects from the meds at this time. he is less preoccupied with his uncle and his father. he spoke mainly today about why he should not be on an injection. he appears to be more directable and rambling less today. no paranoia. He is not responding to internal stimuli, hygiene and grooming are improving mildly. He states that he slept fairly last night. At this time patient denies any suicidal or homical ideations, intent or plan. Patient denies any auditory, visual hallucinations. Patient denies any side effects from the medications and has been compliant with meds. Mental Status Exam: General Appearance: Patient appears to be stated age is alert, difficult to redirect, less argumentative today. Patient appears to have fair hygiene and grooming. longer hair, gamboa. Behavior: Patient is more directable today. Less argumentative. not responding to internal stimuli Speech: Patient's speech is pressured, non linear. less Tangential/circumstantial. Mood/Affect: Patient reports their mood is "alright". Affect is more appropriate today Suicidality/Homicidality: Patient denies having any homicidal ideation intent or plan. Denies any suicidal ideations intent or plan Perceptions: Patient denies any visual hallucinations and denies any auditory hallucinations Though content/process: Not responding to internal stimuli. Delusional, less preoccupied with this. rambles at times. Memory and concentration: AOX3, grossly intact for the purposes of this session Judgment and insight: Chronically poor, improving mildly IMPRESSIONS: Schizophrenia Cannabis use disorder Plan: -Patient continues to meet criteria for inpatient psychiatric admission for symptom stabilization and safety. Patient has not signed adult voluntary form and medication consent and was placed in patient's chart. -Medications: invega 3 mg + 6 mg daily for mood stabilization/psychosis. spoke with patient about transitioning onto HART to ensure compliance however continues to decline this. -When necessary Ativan and Haldol for agitation/aggression. -NRT - nicotine patch -SW on board for discharge planning. Encouraged the patient to participate in milieu. patient did not defer with bankruptcy attorney and will await court hearing date.
[2023-02-02] MEDS ORDERED: PALIPERIDONE IM 234 MG/1.5 ML SYG IM STA (11:34)
[2023-02-02] MEDS: PALIPERIDONE 6 MG TAB.ER.24 PO SCH (20:33)
[2023-02-03 06:47] VITALS: RESP 16
[2023-02-03] MEDS: NICOTINE 14MG/24HR PATCH TRANSDERM SCH (09:19)
[2023-02-03] MEDS: PALIPERIDONE 3 MG TAB.ER.24 PO SCH (09:19)
[2023-02-03] MEDS ORDERED: PALIPERIDONE 3 MG TAB.ER.24 PO STA (10:18)
--- NOTE | 2023-02-03 10:22 | P.PN ---
Progress Note - Text Progress Note Date: 02/03/23 Interval History: Patient was seen wandering the hallways this morning and was agreeable to speak to keno writer / runner in the office today. She was also noted to be taking part in group earlier today. He claims that after taking the higher dose of the paliperidone yesterday he was feeling "a bit shaky afterwards". He states that he did not have this problem with the lower dose of the paliperidone. Claims that overall he is doing a bit better today with regards his mood and anxiety. He is less focused on delusions and more appropriate today during conversation. Improving irritability as well. He states that he did take the long-acting shot yesterday and tolerated it well. We spoke about the next dose for him on Wednesday. He is not responding to internal stimuli, hygiene and grooming are improving mildly. He states that he slept fairly last night. At this time patient denies any suicidal or homical ideations, intent or plan. Patient denies any auditory, visual hallucinations. Patient as been taking his medications. He states that he wants to sign the deferral with the electrical products sales engineer and not go to court. Mental Status Exam: General Appearance: Patient appears to be stated age is alert, difficult to redirect, cooperative today. Patient appears to have fair hygiene and grooming. longer hair, gamboa. Behavior: Patient is more directable today. not responding to internal stimuli, more cooperative today. Speech: Patient's speech is pressured, non linear. less Tangential/circumstantial. Mood/Affect: Patient reports their mood is "ok". Affect is more appropriate today Suicidality/Homicidality: Patient denies having any homicidal ideation intent or plan. Denies any suicidal ideations intent or plan Perceptions: Patient denies any visual hallucinations and denies any auditory hallucinations Though content/process: Delusional, less preoccupied with this. rambles at times. More goal oriented. Memory and concentration: AOX3, grossly intact for the purposes of this session Judgment and insight: Chronically poor, improving mildly IMPRESSIONS: Schizophrenia Cannabis use disorder Plan: -Patient continues to meet criteria for inpatient psychiatric admission for symptom stabilization and safety. Patient has not signed adult voluntary form and medication consent and was placed in patient's chart. -Medications: decrease invega 3 mg daily for mood stabilization/psychosis. patient received HART Invega sustenna 234 mg IM on 02/02 and will be due for next dose of 156 mg IM on 02/05. he will be due for his monthly maintenance dose of 117 mg IM on 02/26. -When necessary Ativan and Haldol for agitation/aggression. clonodine bid prn for anxiety/agitation -NRT - nicotine patch -SW on board for discharge planning. Encouraged the patient to participate in milieu. patient is willing to sign deferral today with electrical products sales engineer. poss d/c wednesday
[2023-02-03] MEDS ORDERED: PALIPERIDONE 3 MG TAB.ER.24 PO ONE (21:00)
[2023-02-04] MEDS: NICOTINE 14MG/24HR PATCH TRANSDERM SCH (09:02)
[2023-02-04] MEDS: PALIPERIDONE 3 MG TAB.ER.24 PO SCH (09:03)
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
[2023-02-04] MEDS: cloNIDine HCL 0.1 MG TAB PO PRN (20:56)
[2023-02-05] MEDS: NICOTINE 14MG/24HR PATCH TRANSDERM SCH (09:24)
[2023-02-05] MEDS: PALIPERIDONE 3 MG TAB.ER.24 PO SCH (09:26)
[2023-02-05] MEDS ORDERED: PALIPERIDONE IM 156 MG/ML SYG IM ONE (10:00)
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
[2023-02-06] MEDS ORDERED: PALIPERIDONE 3 MG TAB.ER.24 PO ONE (09:00)
[2023-02-06] MEDS: NICOTINE 14MG/24HR PATCH TRANSDERM SCH (09:08)
--- NOTE | 2023-02-06 16:31 | P.PN ---
Progress Note - Text Progress Note Date: 02/06/23 Interval history: Patient was seen in the conference room. States that he is doing "good". At this time patient denies any suicidal or homicidal ideations intent or plan. Denies any Auditory or visual hallucinations. Denies paranoia Patient denies any side effects from the medications and has been compliant with meds. Mental status exam: General Appearance: [Patient appears to be stated age is alert, directable, and cooperative.] Behavior: [No agitated behavior. Patient is calm and directable] Speech: Patient's speech is fluent and nonpressured. Mood/Affect: Mood is "good", affect is constricted. Suicidality/Homicidality: Patient denies having any suicidal or homicidal ideation intent or plan. Perceptions: Patient denies any auditory or visual hallucinations. Though content/process: [There is no evidence of any delusional thought content and thought process is linear and goal-directed.] Memory and concentration: AOX3, grossly intact for the purposes of this session Judgment and insight: improving mildly Assessment/Plan: Continue with current diagnosis. Patient continues to meet criteria for inpatient psychiatric admission for symptom stabilization and safety.[Patient will be maintained on current psychotropic medication regimen.] Monitor for medication compliance and for any psychotropic medication side effects. Will continue to monitor ongoing response to treatment. Encouraged participation in milieu.
[2023-02-07 06:17] VITALS: TEMP 97.7
[2023-02-07] MEDS ORDERED: PALIPERIDONE IM 156 MG/ML SYG IM ONE (09:00)
[2023-02-07] MEDS: cloNIDine HCL 0.1 MG TAB PO PRN (21:11)
[2023-02-08 06:27] VITALS: BP 104/55; PULSE 78
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
--- NOTE | 2023-02-08 15:11 | P.PN ---
Progress Note - Text Progress Note Date: 02/07/23 Interval history: Patient was seen in the conference room. States that he is doing "pretty good". At this time patient denies any suicidal or homicidal ideations intent or plan. Denies any Auditory or visual hallucinations. Denies paranoia. reports mild tremor and blurred vision due to medication Mental status exam: General Appearance: [Patient appears to be stated age is alert, directable, and cooperative.] Behavior: [No agitated behavior. Patient is calm and directable] Speech: Patient's speech is fluent and nonpressured. Mood/Affect: Mood is "pretty good", affect is full range Suicidality/Homicidality: Patient denies having any suicidal or homicidal ideation intent or plan. Perceptions: Patient denies any auditory or visual hallucinations. Though content/process: [There is no evidence of any delusional thought content and thought process is linear and goal-directed.] Memory and concentration: AOX3, grossly intact for the purposes of this session Judgment and insight: improving mildly Assessment/Plan: Continue with current diagnosis. Patient continues to meet criteria for inpatient psychiatric admission for symptom stabilization and safety.[Patient will be maintained on current psychotropic medication regimen.] Monitor for medication compliance and for any psychotropic medication side effects. Will continue to monitor ongoing response to treatment. Encouraged participation in milieu.
== END 2023-02-08 13:21 | disposition home or self-care (01) | DRG 750 ==
LOC: EC 21:48 → 3MHU 01-29 02:15
PROVIDERS: ADMIT Psychiatry & Neurology Psychiatry; ATTEND Psychiatry & Neurology Psychiatry
DX: F25.9 Schizoaffective disorder, unspecified (principal); F12.90 Cannabis use, unspecified, uncomplicated; F17.210 Nicotine dependence, cigarettes, uncomplicated; Z79.899 Other long term (current) drug therapy; Z81.8 Family history of other mental and behavioral disorders; Z20.822 Contact with and (suspected) exposure to COVID-19
CPT/HCPCS: 80306; 81003; 82075; 87635; 99291